=== PATIENT | female | born 1975 | race Caucasian/White ===

== ENCOUNTER 2021-03-20 21:06 | Inpatient (IN) | payer OTHER, SELFPAY ==
[2021-03-20 21:15] VITALS: BP 123/93; PULSE 123; RESP 16; TEMP 37; O2SAT 97; BMI 30.7
[2021-03-20 21:35] VITALS: BP 123/93; PULSE 123; RESP 17; TEMP 37; O2SAT 97
[2021-03-20 22:12] LABS: COVID-19 Test Negative (Negative)
[2021-03-20 22:17] LABS: Amphetamine Screen Urine Not Detected (Not Detect); Barbiturates, Urine Not Detected (Not Detect); Benzodiazepines Screen Urine Not Detected (Not Detect); Cannabinoid Screen Urine Not Detected (Not Detect); Cocaine Screen Urine Not Detected (Not Detect); Fentanyl, urine POSITIVE (Not Detect); Opiate Screen Urine Not Detected (Not Detect); Phencyclidine Screen Urine Not Detected (Not Detect)
--- NOTE | 2021-03-20 22:18 | ECG_ITS ---
Test Reason : SI Blood Pressure : / mmHG Vent. Rate : 104 BPM Atrial Rate : 104 BPM P-R Int : 138 ms QRS Dur : 084 ms QT Int : 362 ms P-R-T Axes : 039 -33 050 degrees QTc Int : 476 ms Sinus tachycardia Left axis deviation Possible Anterior infarct , age undetermined Abnormal ECG When compared with ECG of 16-JUN-2018 21:17, No significant change was found Referred By: Marielle Richardson Electronically Signed By:NELLY MALDONADO MD
--- NOTE | 2021-03-20 22:19 | ED.PSYCH ---
HPI - Psych General Chief Complaint: Psychiatric Symptoms Stated Complaint: SI Time Seen by Provider: 03/20/21 22:16 History of Present Illness HPI Narrative: Patient is a 45-year-old female presents today with having suicidal ideation. Patient claims that she does not want to live anymore. Has a history of diabetes. Plan to kill herself by not eating. Patient denies any fever chills. No coughing or congestion. Denies using any recreational drugs. Positive extreme stress at home. Patient is 45 years old and [place]. Has a long history of diabetes. There has been no acute changes medications. Related Data Allergies Allergy/AdvReac Type Severity Reaction Status Date / Time metformin [METFORMIN] Allergy Intermediate VOMITING Unverified 12/24/19 19:14 aspirin [ASA] AdvReac Intermediate VOMITING Unverified 12/24/19 19:14 loratadine [From CLARITIN] AdvReac Intermediate NAUSEA & Unverified 12/24/19 19:14 VOMITING meloxicam [MELOXICAM] AdvReac Intermediate VOMITING Unverified 12/24/19 19:14 NSAIDS (Non-Steroidal AdvReac Intermediate VOMITING Unverified 12/24/19 19:14 Anti-Inflamma [NSAIDS (NON-STEROIDAL ANTI-INFLAMMA] Review of Systems Review of Systems: No fever no chills no diaphoresis Yes all other systems are reviewed and are negative [facility] Past Medical History Attestation statement: The following information was validated with the patient. Social History Social History Advance Directives: No Advance Directives Information Provided: Yes Patient : No Physical Exam Vital Signs: Vital Signs: Last Vital Signs Temp 98.6 F 03/20/21 21:35 Pulse 107 H 03/21/21 00:14 Resp 16 03/21/21 00:14 BP 115/81 03/21/21 00:14 Pulse Ox 97 03/21/21 00:14 BMI result Body Mass Index 30.7 Appearance: Alert. Oriented X3. No acute distress. Eyes: Pupils equal, round and reactive to light. ENT: Pharynx normal. Neck: Normal inspection. Neck supple. No lymph nodes noted. No crepitus CVS: Normal heart rate and rhythm. Pulses normal. Normal S1 and S2 Respiratory: No respiratory distress. Breath sounds normal. No Wheezing. No rales Abdomen: Soft and nontender. No rigidity. No distention. good BS x4 Skin: Skin warm and dry. Normal skin color. Normal skin turgor. Extremities: No lower extremity edema. Neurovascular intact to all extremities. No Lacerations. No Rash Neuro: Oriented X 3. No motor deficit. No sensory deficit. Moving all extermities. No slurred speech MDM - Psych MDM Narrative Medical decision making narrative: Positive suicidal ideation will require further evaluation. Patient's sugar was low. Attempt to give patient glucagon. Patient is not drinking juices. Will monitor sugar carefully. Currently in stable condition. Lab Data Result diagrams: 03/20/21 22:55 03/20/21 22:55 Labs: Lab Results 03/20/21 03/20/21 03/20/21 Range/Units 21:42 21:42 22:55 WBC 6.8 (4.8-10.8) X10*3/uL RBC 4.88 (4.20-5.50) X10*6/uL Hgb 15.5 (12.0-16.0) g/dl Hct 46.2 (37.0-47.0) % MCV 94.7 (80.0-98.0) fL MCH 31.8 (27.0-33.0) pg MCHC 33.5 (31.0-35.0) g/dl RDW 12.7 (11.0-16.0) % Plt Count 286 (160-400) X10*3/uL MPV 9.7 (9.4-12.3) fL Immature Gran % (Auto) 0.3 (0.0-0.4) % Neut % (Auto) 56.1 (45-73) % Lymph % (Auto) 35.0 (20-40) % [place] % (Auto) 6.5 (2-11) % Eos % (Auto) 1.5 (0-4) % Baso % (Auto) 0.6 (0-2) % Lymph # (Auto) 2.4 (1.2-4.9) X10*3/uL [place] # (Auto) 0.4 (0.1-1.2) X10*3/uL Eos # (Auto) 0.1 (0.0-0.4) X10*3/uL Baso # (Auto) 0.0 (0.0-0.2) X10*3/uL Abs Immat Gran (auto) 0.02 (0.00-0.03) X10*3/uL Absolute Neuts (auto) 3.8 (2.0-8.3) x10*3/uL Absolute Nucleated RBC 0.000 (0.0-0.012) X10*3/uL Nucleated RBC % (auto) 0.0 (0.0-0.2) /100WBC Sodium (135-145) mmol/L Potassium (3.3-5.1) mmol/L Chloride (96-108) mmol/L Carbon Dioxide (22-29) mmol/L Anion Gap (12-20) BUN (9-16) mg/dL Creatinine (0.5-1.4) mg/dL Estim Creat Clear Calc Estimated GFR POC Glucose (60-115) mg/dL Random Glucose (60-115) mg/dL Calcium (8.4-10.2) mg/dL Salicylates (15-30) mg/dL Urine Opiates Screen Not Detected (Not Detect) Urine Fentanyl Screen POSITIVE H (Not Detect) Acetaminophen (<30) mcg/mL Ur Barbiturates Screen Not Detected (Not Detect) Ur Phencyclidine Scrn Not Detected (Not Detect) Ur Amphetamines Screen Not Detected (Not Detect) U Benzodiazepines Scrn Not Detected (Not Detect) Urine Cocaine Screen Not Detected (Not Detect) U Marijuana (THC) Screen Not Detected (Not Detect) Ethyl Alcohol mg/dL COVID-19 (ALKA) Negative (Negative) COVID-19 Clin Com See Note 03/20/21 03/20/21 03/21/21 Range/Units 22:55 22:55 00:00 WBC (4.8-10.8) X10*3/uL RBC (4.20-5.50) X10*6/uL Hgb (12.0-16.0) g/dl Hct (37.0-47.0) % MCV (80.0-98.0) fL MCH (27.0-33.0) pg MCHC (31.0-35.0) g/dl RDW (11.0-16.0) % Plt Count (160-400) X10*3/uL MPV (9.4-12.3) fL Immature Gran % (Auto) (0.0-0.4) % Neut % (Auto) (45-73) % Lymph % (Auto) (20-40) % [place] % (Auto) (2-11) % Eos % (Auto) (0-4) % Baso % (Auto) (0-2) % Lymph # (Auto) (1.2-4.9) X10*3/uL [place] # (Auto) (0.1-1.2) X10*3/uL Eos # (Auto) (0.0-0.4) X10*3/uL Baso # (Auto) (0.0-0.2) X10*3/uL Abs Immat Gran (auto) (0.00-0.03) X10*3/uL Absolute Neuts (auto) (2.0-8.3) x10*3/uL Absolute Nucleated RBC (0.0-0.012) X10*3/uL Nucleated RBC % (auto) (0.0-0.2) /100WBC Sodium 147 H (135-145) mmol/L Potassium 4.0 (3.3-5.1) mmol/L Chloride 112 H (96-108) mmol/L Carbon Dioxide 22 (22-29) mmol/L Anion Gap 17 (12-20) BUN 13 (9-16) mg/dL Creatinine 1.50 H (0.5-1.4) mg/dL Estim Creat Clear Calc 52.9 Estimated GFR 38 POC Glucose 46 L* (60-115) mg/dL Random Glucose 56 L* (60-115) mg/dL Calcium 10.0 (8.4-10.2) mg/dL Salicylates < 5.0 L (15-30) mg/dL Urine Opiates Screen (Not Detect) Urine Fentanyl Screen (Not Detect) Acetaminophen 3 (<30) mcg/mL Ur Barbiturates Screen (Not Detect) Ur Phencyclidine Scrn (Not Detect) Ur Amphetamines Screen (Not Detect) U Benzodiazepines Scrn (Not Detect) Urine Cocaine Screen (Not Detect) U Marijuana (THC) Screen (Not Detect) Ethyl Alcohol < 10 mg/dL COVID-19 (ALKA) (Negative) COVID-19 Clin Com Discharge Plan Discharge Clinical Impression: Suicidal ideation
[2021-03-20 23:04] LABS: MANUAL DIFF FLAG NO
[2021-03-20 23:06] LABS: Basophils Percent Auto 0.6 % (0-2); Eosinophils Absolute Auto 0.1 X10*3/uL (0.0-0.4); Eosinophils Percent Auto 1.5 % (0-4); Hematocrit 46.2 % (37.0-47.0); Hemoglobin 15.5 g/dl (12.0-16.0); Imm Gran Abs Auto 0.02 X10*3/uL (0.00-0.03); Imm Gran Pct Auto 0.3 % (0.0-0.4); Lymphocytes Absolute Auto 2.4 X10*3/uL (1.2-4.9); Mean Corpuscular HGB Conc 33.5 g/dl (31.0-35.0); Mean Corpuscular Hemoglobin 31.8 pg (27.0-33.0); Mean Corpuscular Volume 94.7 fL (80.0-98.0); Mean Platelet Volume 9.7 fL (9.4-12.3); Monocytes Absolute Auto 0.4 X10*3/uL (0.1-1.2); Monocytes Percent Auto 6.5 % (2-11); Neutrophils Absolute Auto 3.8 x10*3/uL (2.0-8.3); Neutrophils Percent Auto 56.1 % (45-73); Platelet Count 286 X10*3/uL (160-400); Red Blood Count 4.88 X10*6/uL (4.20-5.50); Red Cell Distribution Width 12.7 % (11.0-16.0); White Blood Count 6.8 X10*3/uL (4.8-10.8)
[2021-03-20 23:17] LABS: Ethanol < 10 mg/dL
[2021-03-20 23:38] LABS: Acetaminophen LAB 3 mcg/mL (<30); Anion Gap 17 (12-20); Blood Urea Nitrogen 13 mg/dL (9-16); Carbon Dioxide 22 mmol/L (22-29); Chloride 112 mmol/L (96-108); Creatinine Clr Calc Pharmacy 52.9; Estimated Glomerular Filt Rate 38; Glucose Random 56 mg/dL (60-115); Salicylate < 5.0 mg/dL (15-30); Sodium 147 mmol/L (135-145)
[2021-03-21 00:03] LABS: Glucose, Whole Blood 46 mg/dL (60-115)
[2021-03-21 00:14] VITALS: BP 115/81; PULSE 107; RESP 16; O2SAT 97
--- NOTE | 2021-03-21 02:03 | PC.NURSE ---
Pt POC is 69.
[2021-03-21 02:06] LABS: Glucose, Whole Blood 69 mg/dL (60-115)
--- NOTE | 2021-03-21 03:27 | PC.NURSE ---
Pt POC is 147.
[2021-03-21 03:28] VITALS: BP 112/79; PULSE 109; RESP 16; O2SAT 97
[2021-03-21 03:30] LABS: Glucose, Whole Blood 147 mg/dL (60-115)
--- NOTE | 2021-03-21 05:43 | PC.NURSE ---
Patient's POC was 46 @ 0000, patient refused to drink, provider notified/ordered to transfer patient to main ED for monitor and treatment, no treatment done, patient started eating and drinking, POC was 147 @ 0325 was transferred back to ED POD at 0400, N referral completed/confirmed, clinician visit deferred due to low blood sugar, patient currently sleeping, will continue to monitor.
[2021-03-21 07:10] LABS: Glucose, Whole Blood 93 mg/dL (60-115)
--- NOTE | 2021-03-21 07:13 | PC.NURSE ---
patient appears to remain asleep at present respirations are even and unlabroed, patient appears in no distress.
[2021-03-21] MEDS: Cholecalciferol (Vitamin D3) 25 MCG TABLET 50 MCG PO (09:46)
[2021-03-21] MEDS: Escitalopram Oxalate 10 MG TABLET 30 MG PO (09:46)
[2021-03-21] MEDS: Acetaminophen 325 MG TABLET 975 MG PO ×3 (09:46→21:58)
[2021-03-21] MEDS: Famotidine 20 MG TABLET PO (09:46)
[2021-03-21] MEDS: buPROPion HCl XL 300 MG TAB.ER.24H PO (09:46)
[2021-03-21 09:47] VITALS: BP 112/79; PULSE 109
[2021-03-21] MEDS: traMADoL HCL 50 MG TABLET PO ×2 (09:47→21:44)
[2021-03-21] MEDS: Propranolol HCL 10 MG TABLET PO ×2 (09:47→21:44)
[2021-03-21] MEDS: Levothyroxine Sodium 125 MCG TABLET PO (09:51)
[2021-03-21 12:34] LABS: Glucose, Whole Blood 152 mg/dL (60-115)
[2021-03-21] MEDS: QUEtiapine Fumarate 25 MG TABLET PO ×3 (12:46→21:46)
[2021-03-21] MEDS: Insulin Lispro 100 UNIT/ML 3 ML VIAL 6 UNIT SUBCUT ×2 (13:21→17:56)
--- NOTE | 2021-03-21 14:43 | MHC.CARE ---
[facility] notified pt will be going inpatient. Spoke with [facility].
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
[2021-03-21 17:37] LABS: Glucose, Whole Blood 166 mg/dL (60-115)
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
[2021-03-21 21:42] LABS: Glucose, Whole Blood 264 mg/dL (60-115)
[2021-03-21] MEDS: Insulin Glargine,Hum.rec.anlog 100 UNIT/ML 10 ML VIAL 30 UNIT SUBCUT (21:42)
[2021-03-21 21:44] VITALS: BP 127/68; PULSE 80
[2021-03-21] MEDS: Loratadine 10 MG TABLET PO (21:45)
[2021-03-21] MEDS: Atorvastatin Calcium 40 MG TABLET PO (21:45)
[2021-03-21] MEDS: traZODone HCL 100 MG TABLET PO (21:46)
[2021-03-21] MEDS: Folic Acid 1 MG TABLET PO (21:46)
[2021-03-21] MEDS: lamoTRIgine 100 MG TABLET 200 MG PO (21:46)
[2021-03-21] MEDS: Fluticasone Propionate Nasal 16 GM SPRAY 1 SPRAY NOSTRIL-B (22:03)
[2021-03-21 22:11] VITALS: BP 127/68; PULSE 80; TEMP 36.6; O2SAT 98
[2021-03-22] MEDS: traMADoL HCL 50 MG TABLET PO ×2 (06:35→20:57)
[2021-03-22] MEDS: Levothyroxine Sodium 125 MCG TABLET PO (06:35)
[2021-03-22 07:57] LABS: Estimated Average Glucose 171 mg/dL; Hemoglobin A1c % 7.6 %
[2021-03-22 08:08] LABS: Cholesterol 124 mg/dL; HDL Cholesterol 38 mg/dL; LDL Cholesterol Calculated 66 mg/dl; Magnesium 1.8 mg/dL (1.6-2.6); Triglycerides 103 mg/dL
[2021-03-22 08:43] LABS: Folate > 20.0 ng/mL (> or = 4.0); Vitamin B12 801 pg/mL (200-900)
[2021-03-22 08:49] LABS: Glucose, Whole Blood 146 mg/dL (60-115)
[2021-03-22] MEDS: Insulin Lispro 100 UNIT/ML 3 ML VIAL 6 UNIT SUBCUT ×3 (08:54→18:57)
[2021-03-22] MEDS: Famotidine 20 MG TABLET PO ×2 (08:55→20:58)
[2021-03-22] MEDS: buPROPion HCl XL 300 MG TAB.ER.24H PO (08:55)
[2021-03-22] MEDS: Escitalopram Oxalate 10 MG TABLET 30 MG PO (08:55)
[2021-03-22] MEDS: Cholecalciferol (Vitamin D3) 25 MCG TABLET 50 MCG PO (08:55)
[2021-03-22] MEDS: QUEtiapine Fumarate 25 MG TABLET PO ×2 (08:57→20:58)
[2021-03-22 09:00] VITALS: BP 117/73; PULSE 106; RESP 16; TEMP 36.4; O2SAT 97
[2021-03-22 09:20] LABS: Free T4 (Free Thyroxine) 1.28 ng/dL (0.71-1.85)
[2021-03-22 09:55] VITALS: BP 117/73; PULSE 106
[2021-03-22] MEDS: Propranolol HCL 10 MG TABLET PO ×2 (09:55→20:57)
[2021-03-22] MEDS: Acetaminophen 325 MG TABLET 975 MG PO ×3 (10:00→18:04)
[2021-03-22] MEDS: Fluticasone Propionate Nasal 16 GM SPRAY 1 SPRAY NOSTRIL-B ×2 (10:01→20:55)
--- NOTE | 2021-03-22 12:30 | MHC.CLN ---
NUTRITION DIET CHANGED TO DIABETIC 2000 KCAL. A1C=7.6 AND TAKES DM MEDS.
[2021-03-22 12:51] LABS: Glucose, Whole Blood 132 mg/dL (60-115)
[2021-03-22] MEDS: buPROPion HCl XL 150 MG TAB.ER.24H PO (14:23)
--- NOTE | 2021-03-22 15:19 | HO.PSYCHPN ---
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 she states she has been out of the hospital for 2 years, living at [facility] for 8. review the presenting problem. reports she has been depressed since january, got really bad in the past couple of weeks. denies any precipitating factors. asks that famotidine be increased to 20 mg BID from once daily, as that is what she is prescribed outside the hospital. meds reviewed. agrees to increase wellbutrin to 450 mg daily for depression; it is noted she is taking lamictal, an AED. pt reports she has thoughts of overdose on tylenol outside the hospital but is only thinking of starving herself here. she notes she has eaten some since admission, as she is help-seeking. per staff, c/o hypersomnia. FSBS 146 today. slept well last night. has eaten some since admission. Mental Status Exam Mental Status Exam Narrative: A&O. In hospital attire, adequate grooming. Good eye contact, attentive. No Tics or Tremors. No abnormal involuntary movements. Calm, cooperative, engaged. Non-pressured speech, spontaneous with regular rate and rhythm, normal volume and prosody. No prolonged speech latency or dysarthria. Mood is ?i don't care,? affect is somewhat incongruent- overall pt is calm, forthcoming, help seeking but somewhat indifferent in reporting sx. Endorses SI with plan to starve herself/ denies SIB/HI upon inquiry. Denies A/VH or delusional thought content. Thoughts are coherent, organized. No known cognitive or memory impairment. Insight/ Judgment limited but adequate. Diagnostics Vital Signs (24Hr): Vital Signs - 24 hr 03/21/21 21:44 03/21/21 22:11 03/22/21 09:00 Temperature 97.8 F 97.6 F Pulse Rate 80 80 106 H Respiratory Rate 16 Blood Pressure 127/68 127/68 117/73 Pulse Oximetry 98 97 03/22/21 09:55 Temperature Pulse Rate 106 H Respiratory Rate Blood Pressure 117/73 Pulse Oximetry BMI result Body Mass Index 30.7 Labs Results: 03/20/21 22:55 03/20/21 22:55 Labs: Laboratory Results - last 48 hr 12/13/21 12/13/21 12/13/21 21:42 21:42 22:55 WBC 6.8 RBC 4.88 Hgb 15.5 Hct 46.2 MCV 94.7 MCH 31.8 MCHC 33.5 RDW 12.7 Plt Count 286 MPV 9.7 Immature Gran % (Auto) 0.3 Neut % (Auto) 56.1 Lymph % (Auto) 35.0 [place] % (Auto) 6.5 Eos % (Auto) 1.5 Baso % (Auto) 0.6 Lymph # (Auto) 2.4 [place] # (Auto) 0.4 Eos # (Auto) 0.1 Baso # (Auto) 0.0 Abs Immat Gran (auto) 0.02 Absolute Neuts (auto) 3.8 Absolute Nucleated RBC 0.000 Nucleated RBC % (auto) 0.0 Sodium Potassium Chloride Carbon Dioxide Anion Gap BUN Creatinine Estim Creat Clear Calc Estimated GFR POC Glucose Random Glucose Estimat Average Glucose Hemoglobin A1c % Calcium Magnesium Triglycerides Cholesterol LDL Cholesterol, Calc HDL Cholesterol Vitamin B12 Folate TSH Free T4 Salicylates Urine Opiates Screen Not Detected Urine Fentanyl Screen POSITIVE H Acetaminophen Ur Barbiturates Screen Not Detected Ur Phencyclidine Scrn Not Detected Ur Amphetamines Screen Not Detected U Benzodiazepines Scrn Not Detected Urine Cocaine Screen Not Detected U Marijuana (THC) Screen Not Detected Ethyl Alcohol COVID-19 (ALKA) Negative COVID-19 Clin Com See Note 03/20/21 03/20/21 03/21/21 22:55 22:55 00:00 WBC RBC Hgb Hct MCV MCH MCHC RDW Plt Count MPV Immature Gran % (Auto) Neut % (Auto) Lymph % (Auto) [place] % (Auto) Eos % (Auto) Baso % (Auto) Lymph # (Auto) [place] # (Auto) Eos # (Auto) Baso # (Auto) Abs Immat Gran (auto) Absolute Neuts (auto) Absolute Nucleated RBC Nucleated RBC % (auto) Sodium 147 H Potassium 4.0 Chloride 112 H Carbon Dioxide 22 Anion Gap 17 BUN 13 Creatinine 1.50 H Estim Creat Clear Calc 52.9 Estimated GFR 38 POC Glucose 46 L* Random Glucose 56 L* Estimat Average Glucose Hemoglobin A1c % Calcium 10.0 Magnesium Triglycerides Cholesterol LDL Cholesterol, Calc HDL Cholesterol Vitamin B12 Folate TSH Free T4 Salicylates < 5.0 L Urine Opiates Screen Urine Fentanyl Screen Acetaminophen 3 Ur Barbiturates Screen Ur Phencyclidine Scrn Ur Amphetamines Screen U Benzodiazepines Scrn Urine Cocaine Screen U Marijuana (THC) Screen Ethyl Alcohol < 10 COVID-19 (ALKA) COVID-19 Lateral SV 03/21/21 03/21/21 03/21/21 02:01 03:25 07:07 WBC RBC Hgb Hct MCV MCH MCHC RDW Plt Count MPV Immature Gran % (Auto) Neut % (Auto) Lymph % (Auto) [place] % (Auto) Eos % (Auto) Baso % (Auto) Lymph # (Auto) [place] # (Auto) Eos # (Auto) Baso # (Auto) Abs Immat Gran (auto) Absolute Neuts (auto) Absolute Nucleated RBC Nucleated RBC % (auto) Sodium Potassium Chloride Carbon Dioxide Anion Gap BUN Creatinine Estim Creat Clear Calc Estimated GFR POC Glucose 69 147 H 93 Random Glucose Estimat Average Glucose Hemoglobin A1c % Calcium Magnesium Triglycerides Cholesterol LDL Cholesterol, Calc HDL Cholesterol Vitamin B12 Folate TSH Free T4 Salicylates Urine Opiates Screen Urine Fentanyl Screen Acetaminophen Ur Barbiturates Screen Ur Phencyclidine Scrn Ur Amphetamines Screen U Benzodiazepines Scrn Urine Cocaine Screen U Marijuana (THC) Screen Ethyl Alcohol COVID-19 (ALKA) COVID-[place] 03/21/21 03/21/21 03/21/21 12:31 17:31 21:33 WBC RBC Hgb Hct MCV MCH MCHC RDW Plt Count MPV Immature Gran % (Auto) Neut % (Auto) Lymph % (Auto) [place] % (Auto) Eos % (Auto) Baso % (Auto) Lymph # (Auto) [place] # (Auto) Eos # (Auto) Baso # (Auto) Abs Immat Gran (auto) Absolute Neuts (auto) Absolute Nucleated RBC Nucleated RBC % (auto) Sodium Potassium Chloride Carbon Dioxide Anion Gap BUN Creatinine Estim Creat Clear Calc Estimated GFR POC Glucose 152 H 166 H 264 H Random Glucose Estimat Average Glucose Hemoglobin A1c % Calcium Magnesium Triglycerides Cholesterol LDL Cholesterol, Calc HDL Cholesterol Vitamin B12 Folate TSH Free T4 Salicylates Urine Opiates Screen Urine Fentanyl Screen Acetaminophen Ur Barbiturates Screen Ur Phencyclidine Scrn Ur Amphetamines Screen U Benzodiazepines Scrn Urine Cocaine Screen U Marijuana (THC) Screen Ethyl Alcohol COVID-19 (ALKA) COVID-19 Lateral SV 03/22/21 03/22/21 03/22/21 07:26 07:26 07:26 WBC RBC Hgb Hct MCV MCH MCHC RDW Plt Count MPV Immature Gran % (Auto) Neut % (Auto) Lymph % (Auto) [place] % (Auto) Eos % (Auto) Baso % (Auto) Lymph # (Auto) [place] # (Auto) Eos # (Auto) Baso # (Auto) Abs Immat Gran (auto) Absolute Neuts (auto) Absolute Nucleated RBC Nucleated RBC % (auto) Sodium Potassium Chloride Carbon Dioxide Anion Gap BUN Creatinine Estim Creat Clear Calc Estimated GFR POC Glucose Random Glucose Estimat Average Glucose 171 Hemoglobin A1c % 7.6 Calcium Magnesium 1.8 Triglycerides 103 Cholesterol 124 LDL Cholesterol, Calc 66 HDL Cholesterol 38 Vitamin B12 801 Folate > 20.0 TSH 1.30 Free T4 1.28 Salicylates Urine Opiates Screen Urine Fentanyl Screen Acetaminophen Ur Barbiturates Screen Ur Phencyclidine Scrn Ur Amphetamines Screen U Benzodiazepines Scrn Urine Cocaine Screen U Marijuana (THC) Screen Ethyl Alcohol COVID-19 (ALKA) COVID-[place]otky 03/22/21 03/22/21 08:45 12:47 WBC RBC Hgb Hct MCV MCH MCHC RDW Plt Count MPV Immature Gran % (Auto) Neut % (Auto) Lymph % (Auto) [place] % (Auto) Eos % (Auto) Baso % (Auto) Lymph # (Auto) [place] # (Auto) Eos # (Auto) Baso # (Auto) Abs Immat Gran (auto) Absolute Neuts (auto) Absolute Nucleated RBC Nucleated RBC % (auto) Sodium Potassium Chloride Carbon Dioxide Anion Gap BUN Creatinine Estim Creat Clear Calc Estimated GFR POC Glucose 146 H 132 H Random Glucose Estimat Average Glucose Hemoglobin A1c % Calcium Magnesium Triglycerides Cholesterol LDL Cholesterol, Calc HDL Cholesterol Vitamin B12 Folate TSH Free T4 Salicylates Urine Opiates Screen Urine Fentanyl Screen Acetaminophen Ur Barbiturates Screen Ur Phencyclidine Scrn Ur Amphetamines Screen U Benzodiazepines Scrn Urine Cocaine Screen U Marijuana (THC) Screen Ethyl Alcohol COVID-19 (ALKA) COVID-19 Lateral SV Medications Medications Current Medications Acetaminophen (Acetaminophen 325 Mg Tablet) 975 mg PO TID@0800,1200,1700 [facility] Last Admin: 03/22/21 13:09 Dose: 975 mg Documented by: Al Hydroxide/Mg Hydroxide (Magnesium Hydrox/Alum Hydrox 30 Ml Oral.Susp) 30 ml PO Q4H PRN PRN Reason: Dyspepsia Albuterol Sulfate (Albuterol Sulfate 90 Mcg 8 Gm Inhaler) 2 puff INHALE Q4H PRN PRN Reason: Shortness Of Breath Atorvastatin Calcium (Atorvastatin Calcium 40 Mg Tablet) 40 mg PO BEDTIME [facility] Last Admin: 03/21/21 21:45 Dose: 40 mg Documented by: Bupropion HCl (Bupropion Hcl Xl 150 Mg Tab.Er.24h) 450 mg PO DAILY [facility] Escitalopram Oxalate (Escitalopram Oxalate 10 Mg Tablet) 30 mg PO DAILY [facility] Last Admin: 03/22/21 08:55 Dose: 30 mg Documented by: Famotidine (Famotidine 20 Mg Tablet) 20 mg PO BID [facility] Fluticasone Propionate (Fluticasone Propionate Nasal 16 Gm [place]) 1 spray NOSTRIL-B BID [facility] Last Admin: 03/22/21 10:01 Dose: 1 spray Documented by: Folic Acid (Folic Acid 1 Mg Tablet) 1 mg PO BEDTIME [facility] Last Admin: 03/21/21 21:46 Dose: 1 mg Documented by: Guaifenesin/Dextromethorphan (Guaifenesin Dm 200/20/10 Ml 10 Ml Syrup) 10 ml PO Q4H PRN PRN Reason: Cough Hydroxyzine HCl (Hydroxyzine Hcl 25 Mg Tablet) 25 mg PO Q6H PRN PRN Reason: Anxiety Insulin Glargine (Insulin Glargine,Hum.Rec.Anlog 100 Unit/Ml 10 Ml Vial) 30 unit SUBCUT BEDTIME [facility] Last Admin: 03/21/21 21:42 Dose: 30 unit Documented by: Insulin Human Lispro (Insulin Lispro 100 Unit/Ml 3 Ml Vial) 6 unit SUBCUT TIDAC [facility] Last Admin: 03/22/21 13:06 Dose: 6 unit Documented by: Lamotrigine (Lamotrigine 100 Mg Tablet) 200 mg PO BEDTIME [facility] Last Admin: 03/21/21 21:46 Dose: 200 mg Documented by: Levothyroxine Sodium (Levothyroxine Sodium 125 Mcg Tablet) 125 mcg PO SuTuWeThSa@0630 [facility] Last Admin: 03/22/21 06:35 Dose: 125 mcg Documented by: Levothyroxine Sodium 112 mcg/ (Levothyroxine Sodium 25 mcg) 137 mcg PO MoFr@0600 [facility] Loperamide HCl (Loperamide Hcl 2 Mg Capsule) 4 mg PO Q6H PRN PRN Reason: Diarrhea Loratadine (Loratadine 10 Mg Tablet) 10 mg PO BEDTIME [facility] Last Admin: 03/21/21 21:45 Dose: 10 mg Documented by: Magnesium Hydroxide (Milk Of Magnesia 30 Ml Oral.Susp) 30 ml PO DAILY PRN PRN Reason: Constipation Non-Formulary Medication (Mometasone [Asmanex Twisthaler]) 1 inhalation INHALE BID [facility] Ondansetron HCl (Ondansetron Odt 4 Mg Tab.Rapdis) 4 mg TRANSLINGU Q4H PRN PRN Reason: Nausea Prochlorperazine Maleate (Prochlorperazine Maleate 5 Mg Tablet) 10 mg PO BID PRN PRN Reason: Nausea Propranolol HCl (Propranolol Hcl 10 Mg Tablet) 10 mg PO BID [facility]; Protocol Last Admin: 03/22/21 09:55 Dose: 10 mg Documented by: Quetiapine Fumarate (Quetiapine Fumarate 25 Mg Tablet) 25 mg PO BEDTIME [facility] Last Admin: 03/21/21 21:46 Dose: 25 mg Documented by: Quetiapine Fumarate (Quetiapine Fumarate 25 Mg Tablet) 25 mg PO Q6H PRN PRN Reason: Anxiety Last Admin: 03/22/21 08:57 Dose: 25 mg Documented by: Tramadol HCl (Tramadol Hcl 50 Mg Tablet) 50 mg PO BID [facility] Last Admin: 03/22/21 06:35 Dose: 50 mg Documented by: Trazodone HCl (Trazodone Hcl 100 Mg Tablet) 100 mg PO BEDTIME [facility] Last Admin: 03/21/21 21:46 Dose: 100 mg Documented by: Vitamin D (Cholecalciferol (Vitamin D3) 25 Mcg Tablet) 50 mcg PO DAILY [facility] Last Admin: 03/22/21 08:55 Dose: 50 mcg Documented by: Allergies Allergies Allergy/AdvReac Type Severity Reaction Status Date / Time metformin [METFORMIN] Allergy Intermediate VOMITING Unverified 12/24/19 19:14 aspirin [ASA] AdvReac Intermediate VOMITING Unverified 12/24/19 19:14 loratadine [From CLARITIN] AdvReac Intermediate NAUSEA & Unverified 12/24/19 19:14 VOMITING meloxicam [MELOXICAM] AdvReac Intermediate VOMITING Unverified 12/24/19 19:14 NSAIDS (Non-Steroidal AdvReac Intermediate VOMITING Unverified 12/24/19 19:14 Anti-Inflamma [NSAIDS (NON-STEROIDAL ANTI-INFLAMMA] Assessment & Plan Assessment & Plan (1) MDD (major depressive disorder), recurrent severe, without psychosis: Status: Acute Code(s): F33.2 - Major depressive disorder, recurrent severe without psychotic features Assessment and Plan: Sonam is a 45 y.o. female who carries a dx of Severe MDD, recurrent. She was in the [employer], has VA services. Pt presented to the [facility] ED 03/20/21 via EMS from her SNF (lives at [facility] due to chronic mental health issues) due to SI with a plan to starve herself. Has not been attending to ADLs and reports at baseline she has seasonal affective sx but recently depression and SI are worse, feels more isolated. Pt has co-morbid medical diagnosis of insulin dependent diabetes, hypothyroidism (on levothyroxine). Pt has long hx of IPLOC for depression, SI. Hx of SA by OD on tylenol in 2019 leading to IPLOC at [facility] in [place]. Plan: Pt says she feels her current med regimen has been helpful, likes her psychiatrist. Reports recent med change of an increase in lamictal to 200 mg QHS in 01/26 has been helpful. Takes Propranolol is for tremors, which she attributes to wellbutrin dosage. She is currently on two different dosages of levothyroxine. pt agrees to increase wellbutrin to 450 mg daily as of 03/22. Monitor response to medications. Monitor for safety in the milieu. Discharge on stabilization. Patient seen. Chart reviewed. Discussed with team. Obtain collateral contact info?as needed I spent minutes with the patient and/or on the patient floor today, greater than?50% of which was spent counseling/coordinating care. Reason for contiued inpatient stay Substantial Risk for: harm to self and inability to function
[2021-03-22 18:03] LABS: Glucose, Whole Blood 117 mg/dL (60-115)
[2021-03-22 20:30] VITALS: BP 119/78; PULSE 122; TEMP 36.6; O2SAT 98
[2021-03-22 20:43] LABS: Glucose, Whole Blood 181 mg/dL (60-115)
[2021-03-22] MEDS: Insulin Glargine,Hum.rec.anlog 100 UNIT/ML 10 ML VIAL 30 UNIT SUBCUT (20:56)
[2021-03-22 20:57] VITALS: BP 119/78; PULSE 122
[2021-03-22] MEDS: Atorvastatin Calcium 40 MG TABLET PO (20:58)
[2021-03-22] MEDS: lamoTRIgine 100 MG TABLET 200 MG PO (20:58)
[2021-03-22] MEDS: Folic Acid 1 MG TABLET PO (20:58)
[2021-03-22] MEDS: traZODone HCL 100 MG TABLET PO (20:59)
[2021-03-22] MEDS: Loratadine 10 MG TABLET PO (20:59)
[2021-03-23] MEDS: Levothyroxine Sodium 125 MCG TABLET PO (06:48)
[2021-03-23] MEDS: Acetaminophen 325 MG TABLET 975 MG PO ×3 (06:50→18:13)
[2021-03-23 07:00] VITALS: BMI 32.1
[2021-03-23 09:00] VITALS: BP 110/82; PULSE 118; RESP 17; TEMP 36.7; O2SAT 99
[2021-03-23 09:19] LABS: Glucose, Whole Blood 161 mg/dL (60-115)
[2021-03-23] MEDS: Insulin Lispro 100 UNIT/ML 3 ML VIAL 6 UNIT SUBCUT ×3 (09:25→18:34)
[2021-03-23] MEDS: buPROPion HCl XL 150 MG TAB.ER.24H 450 MG PO (09:26)
[2021-03-23 09:27] VITALS: BP 110/82; PULSE 118
[2021-03-23] MEDS: traMADoL HCL 50 MG TABLET PO ×2 (09:27→20:41)
[2021-03-23] MEDS: Escitalopram Oxalate 10 MG TABLET 30 MG PO (09:27)
[2021-03-23] MEDS: Propranolol HCL 10 MG TABLET PO ×2 (09:27→20:42)
[2021-03-23] MEDS: Cholecalciferol (Vitamin D3) 25 MCG TABLET 50 MCG PO (09:27)
[2021-03-23] MEDS: Famotidine 20 MG TABLET PO ×2 (09:28→20:40)
[2021-03-23] MEDS: QUEtiapine Fumarate 25 MG TABLET PO ×3 (11:06→18:37)
[2021-03-23 13:01] LABS: Glucose, Whole Blood 73 mg/dL (60-115)
--- NOTE | 2021-03-23 15:47 | HO.PSYCHPN ---
Subjective Subjective Date of Service: 03/23/21 Reason For Visit: SI Interim History: pt reports difficulty sleeping and mood worse than it was yesterday. the reasons seem to be rumination on dashed hopes of a better relationship with her daughter and the upcoming holidays, during which she will have nobody with whom to celebrate them. endorses SI, denies intent here. agrees to continue current mgmt. per staff, anx/dep. denied SI/HI. sleeping well. got seroquel 25 to good effect. dep 01/15. isolating, attending groups, visible in milieu. Mental Status Exam Mental Status Exam Narrative: A&O. In street clothes, adequate grooming. Good eye contact, attentive. No Tics or Tremors. No abnormal involuntary movements. Calm, cooperative, engaged. Non-pressured speech, spontaneous with regular rate and rhythm, normal volume and prosody. No prolonged speech latency or dysarthria. Mood is ?worse than yesterday, affect is generally congruent- overall pt is calm, forthcoming, help seeking. Endorses SI with no intent in hospital. Thoughts are coherent, organized. No known cognitive or memory impairment. Insight/ Judgment limited but adequate. Diagnostics Vital Signs (24Hr): Vital Signs - 24 hr 03/22/21 20:30 03/22/21 20:57 03/23/21 09:27 Temperature 97.8 F Pulse Rate 122 H 122 H 118 H Blood Pressure 119/78 119/78 110/82 Pulse Oximetry 98 BMI result Body Mass Index 30.7 Labs Results: 03/20/21 22:55 03/20/21 22:55 Labs: Laboratory Results - last 48 hr 03/21/21 03/21/21 03/22/21 17:31 21:33 07:26 POC Glucose 166 H 264 H Estimat Average Glucose 171 Hemoglobin A1c % 7.6 Magnesium Triglycerides Cholesterol LDL Cholesterol, Calc HDL Cholesterol Vitamin B12 Folate TSH Free T4 03/22/21 03/22/21 03/22/21 07:26 07:26 08:45 POC Glucose 146 H Estimat Average Glucose Hemoglobin A1c % Magnesium 1.8 Triglycerides 103 Cholesterol 124 LDL Cholesterol, Calc 66 HDL Cholesterol 38 Vitamin B12 801 Folate > 20.0 TSH 1.30 Free T4 1.28 03/22/21 03/22/21 03/22/21 12:47 18:01 20:38 POC Glucose 132 H 117 H 181 H Estimat Average Glucose Hemoglobin A1c % Magnesium Triglycerides Cholesterol LDL Cholesterol, Calc HDL Cholesterol Vitamin B12 Folate TSH Free T4 03/23/21 03/23/21 09:11 12:35 POC Glucose 161 H 73 Estimat Average Glucose Hemoglobin A1c % Magnesium Triglycerides Cholesterol LDL Cholesterol, Calc HDL Cholesterol Vitamin B12 Folate TSH Free T4 Medications Medications Current Medications Acetaminophen (Acetaminophen 325 Mg Tablet) 975 mg PO TID@0800,1200,1700 [facility] Last Admin: 03/23/21 13:07 Dose: 975 mg Documented by: Al Hydroxide/Mg Hydroxide (Magnesium Hydrox/Alum Hydrox 30 Ml Oral.Susp) 30 ml PO Q4H PRN PRN Reason: Dyspepsia Albuterol Sulfate (Albuterol Sulfate 90 Mcg 8 Gm Inhaler) 2 puff INHALE Q4H PRN PRN Reason: Shortness Of Breath Atorvastatin Calcium (Atorvastatin Calcium 40 Mg Tablet) 40 mg PO BEDTIME [facility] Last Admin: 03/22/21 20:58 Dose: 40 mg Documented by: Bupropion HCl (Bupropion Hcl Xl 150 Mg Tab.Er.24h) 450 mg PO DAILY [facility] Last Admin: 03/23/21 09:26 Dose: 450 mg Documented by: Escitalopram Oxalate (Escitalopram Oxalate 10 Mg Tablet) 30 mg PO DAILY [facility] Last Admin: 03/23/21 09:27 Dose: 30 mg Documented by: Famotidine (Famotidine 20 Mg Tablet) 20 mg PO BID [facility] Last Admin: 03/23/21 09:28 Dose: 20 mg Documented by: Fluticasone Propionate (Fluticasone Propionate Nasal 16 Gm [place]) 1 spray NOSTRIL-B BID [facility] Last Admin: 03/23/21 12:13 Dose: Not Given Documented by: Folic Acid (Folic Acid 1 Mg Tablet) 1 mg PO BEDTIME [facility] Last Admin: 03/22/21 20:58 Dose: 1 mg Documented by: Guaifenesin/Dextromethorphan (Guaifenesin Dm 200/20/10 Ml 10 Ml Syrup) 10 ml PO Q4H PRN PRN Reason: Cough Hydroxyzine HCl (Hydroxyzine Hcl 25 Mg Tablet) 25 mg PO Q6H PRN PRN Reason: Anxiety Insulin Glargine (Insulin Glargine,Hum.Rec.Anlog 100 Unit/Ml 10 Ml Vial) 30 unit SUBCUT BEDTIME [facility] Last Admin: 03/22/21 20:56 Dose: 30 unit Documented by: Insulin Human Lispro (Insulin Lispro 100 Unit/Ml 3 Ml Vial) 6 unit SUBCUT TIDAC [facility] Last Admin: 03/23/21 13:08 Dose: 6 unit Documented by: Lamotrigine (Lamotrigine 100 Mg Tablet) 200 mg PO BEDTIME [facility] Last Admin: 03/22/21 20:58 Dose: 200 mg Documented by: Levothyroxine Sodium (Levothyroxine Sodium 125 Mcg Tablet) 125 mcg PO SuTuWeThSa@0630 [facility] Last Admin: 03/23/21 06:48 Dose: 125 mcg Documented by: Levothyroxine Sodium 112 mcg/ (Levothyroxine Sodium 25 mcg) 137 mcg PO MoFr@0600 [facility] Loperamide HCl (Loperamide Hcl 2 Mg Capsule) 4 mg PO Q6H PRN PRN Reason: Diarrhea Loratadine (Loratadine 10 Mg Tablet) 10 mg PO BEDTIME [facility] Last Admin: 03/22/21 20:59 Dose: 10 mg Documented by: Magnesium Hydroxide (Milk Of Magnesia 30 Ml Oral.Susp) 30 ml PO DAILY PRN PRN Reason: Constipation Non-Formulary Medication (Mometasone [Asmanex Twisthaler]) 1 inhalation INHALE BID [facility] Ondansetron HCl (Ondansetron Odt 4 Mg Tab.Rapdis) 4 mg TRANSLINGU Q4H PRN PRN Reason: Nausea Prochlorperazine Maleate (Prochlorperazine Maleate 5 Mg Tablet) 10 mg PO BID PRN PRN Reason: Nausea Propranolol HCl (Propranolol Hcl 10 Mg Tablet) 10 mg PO BID [facility]; Protocol Last Admin: 03/23/21 09:27 Dose: 10 mg Documented by: Quetiapine Fumarate (Quetiapine Fumarate 25 Mg Tablet) 25 mg PO TID PRN PRN Reason: Anxiety Last Admin: 03/23/21 14:22 Dose: 25 mg Documented by: Quetiapine Fumarate (Quetiapine Fumarate 50 Mg Tablet) 50 mg PO BEDTIME [facility] Tramadol HCl (Tramadol Hcl 50 Mg Tablet) 50 mg PO DAILY@0600 [facility] Tramadol HCl (Tramadol Hcl 50 Mg Tablet) 50 mg PO BEDTIME [facility] Trazodone HCl (Trazodone Hcl 100 Mg Tablet) 100 mg PO BEDTIME [facility] Last Admin: 03/22/21 20:59 Dose: 100 mg Documented by: Vitamin D (Cholecalciferol (Vitamin D3) 25 Mcg Tablet) 50 mcg PO DAILY [facility] Last Admin: 03/23/21 09:27 Dose: 50 mcg Documented by: Allergies Allergies Allergy/AdvReac Type Severity Reaction Status Date / Time metformin [METFORMIN] Allergy Intermediate VOMITING Unverified 12/24/19 19:14 aspirin [ASA] AdvReac Intermediate VOMITING Unverified 12/24/19 19:14 loratadine [From CLARITIN] AdvReac Intermediate NAUSEA & Unverified 12/24/19 19:14 VOMITING meloxicam [MELOXICAM] AdvReac Intermediate VOMITING Unverified 12/24/19 19:14 NSAIDS (Non-Steroidal AdvReac Intermediate VOMITING Unverified 12/24/19 19:14 Anti-Inflamma [NSAIDS (NON-STEROIDAL ANTI-INFLAMMA] Assessment & Plan Assessment & Plan (1) MDD (major depressive disorder), recurrent severe, without psychosis: Status: Acute Code(s): F33.2 - Major depressive disorder, recurrent severe without psychotic features Assessment and Plan: Hope is a 45 y.o. female who carries a dx of Severe MDD, recurrent. She was in the [employer], has VA services. Pt presented to the [facility] ED 03/20/21 via EMS from her SNF (lives at [facility] due to chronic mental health issues) due to SI with a plan to starve herself. Has not been attending to ADLs and reports at baseline she has seasonal affective sx but recently depression and SI are worse, feels more isolated. Pt has co-morbid medical diagnosis of insulin dependent diabetes, hypothyroidism (on levothyroxine). Pt has long hx of IPLOC for depression, SI. Hx of SA by OD on tylenol in 2019 leading to IPLOC at [facility] in [place]. Plan: Pt says she feels her current med regimen has been helpful, likes her psychiatrist. Reports recent med change of an increase in lamictal to 200 mg QHS in 01/26 has been helpful. Takes Propranolol is for tremors, which she attributes to wellbutrin dosage. She is currently on two different dosages of levothyroxine. pt agrees to increase wellbutrin to 450 mg daily as of 03/22. Monitor response to medications. Monitor for safety in the milieu. Discharge on stabilization. Patient seen. Chart reviewed. Discussed with team. Obtain collateral contact info?as needed I spent minutes with the patient and/or on the patient floor today, greater than?50% of which was spent counseling/coordinating care. Reason for contiued inpatient stay Substantial Risk for: harm to self
[2021-03-23 16:34] LABS: Glucose, Whole Blood 149 mg/dL (60-115)
[2021-03-23 18:00] VITALS: BP 110/66; PULSE 109; RESP 14; TEMP 36.7; O2SAT 97
[2021-03-23] MEDS: Fluticasone Propionate Nasal 16 GM SPRAY 1 SPRAY NOSTRIL-B (20:38)
[2021-03-23] MEDS: lamoTRIgine 100 MG TABLET 200 MG PO (20:39)
[2021-03-23] MEDS: Folic Acid 1 MG TABLET PO (20:39)
[2021-03-23] MEDS: traZODone HCL 100 MG TABLET PO (20:40)
[2021-03-23 20:42] VITALS: BP 110/66; PULSE 109
[2021-03-23] MEDS: QUEtiapine Fumarate 50 MG TABLET PO (20:42)
[2021-03-23] MEDS: Atorvastatin Calcium 40 MG TABLET PO (20:43)
[2021-03-23] MEDS: Loratadine 10 MG TABLET PO (20:43)
[2021-03-23] MEDS: Insulin Glargine,Hum.rec.anlog 100 UNIT/ML 10 ML VIAL 30 UNIT SUBCUT (20:50)
[2021-03-23 20:56] LABS: Glucose, Whole Blood 153 mg/dL (60-115)
[2021-03-24 08:54] VITALS: BP 105/73; PULSE 110; RESP 16; TEMP 36.7; O2SAT 96
[2021-03-24 08:56] LABS: Glucose, Whole Blood 157 mg/dL (60-115)
[2021-03-24] MEDS: Levothyroxine Sodium 112 MCG, Levothyroxine Sodium 25 MCG 137 MCG PO (09:13)
[2021-03-24] MEDS: Famotidine 20 MG TABLET PO ×2 (09:15→20:44)
[2021-03-24] MEDS: buPROPion HCl XL 150 MG TAB.ER.24H 450 MG PO (09:15)
[2021-03-24] MEDS: Escitalopram Oxalate 10 MG TABLET 30 MG PO (09:16)
[2021-03-24] MEDS: Acetaminophen 325 MG TABLET 975 MG PO ×3 (09:16→17:54)
[2021-03-24] MEDS: Cholecalciferol (Vitamin D3) 25 MCG TABLET 50 MCG PO (09:18)
[2021-03-24 09:21] VITALS: BP 105/73; PULSE 110
[2021-03-24] MEDS: Propranolol HCL 10 MG TABLET PO ×2 (09:21→21:11)
[2021-03-24] MEDS: QUEtiapine Fumarate 25 MG TABLET PO ×2 (09:21→12:54)
[2021-03-24] MEDS: traMADoL HCL 50 MG TABLET PO ×2 (09:22→20:43)
[2021-03-24 12:09] LABS: Glucose, Whole Blood 200 mg/dL (60-115)
[2021-03-24] MEDS: Insulin Lispro 100 UNIT/ML 3 ML VIAL 6 UNIT SUBCUT ×2 (12:58→17:53)
--- NOTE | 2021-03-24 13:34 | HO.PSYCHPN ---
Subjective Subjective Date of Service: 03/24/21 Reason For Visit: SI Interim History: pt states she continues to experience SI but is safe in the hospital. she denies her mood has changed, describing herself as depressed, sad, frustrated. she has no requests or complaints at the moment and is amenable to waiting and letting the wellbutrin increase settle in. per staff, no change in presentation. depressed and anxious. denies SI/HI/AVH. EJ kessler helped yesterday afternoon. attending daytime groups. Mental Status Exam Mental Status Exam Narrative: A&O. In street clothes, adequate grooming. Good eye contact, attentive. No Tics or Tremors. No abnormal involuntary movements. Calm, cooperative, engaged. Non-pressured speech, spontaneous with regular rate and rhythm, normal volume and prosody. No prolonged speech latency or dysarthria. Mood is ?depressed, sad, frustrated, affect is generally congruent- overall pt is calm, forthcoming, help seeking. Endorses SI with no intent in hospital. Thoughts are coherent, organized. No known cognitive or memory impairment. Insight/ Judgment limited but adequate. Diagnostics Vital Signs (24Hr): Vital Signs - 24 hr 03/23/21 18:00 03/23/21 20:42 03/24/21 08:54 Temperature 98.0 F 98.0 F Pulse Rate 109 H 109 H 110 H Respiratory Rate 14 16 Blood Pressure 110/66 110/66 105/73 Pulse Oximetry 97 96 03/24/21 09:21 Temperature Pulse Rate 110 H Respiratory Rate Blood Pressure 105/73 Pulse Oximetry BMI result Body Mass Index 32.1 Labs Results: 03/20/21 22:55 03/20/21 22:55 Labs: Laboratory Results - last 48 hr 03/22/21 03/22/21 03/23/21 18:01 20:38 09:11 POC Glucose 117 H 181 H 161 H 03/23/21 03/23/21 03/23/21 12:35 16:30 20:15 POC Glucose 73 149 H 153 H 03/24/21 03/24/21 08:51 12:05 POC Glucose 157 H 200 H Medications Medications Current Medications Acetaminophen (Acetaminophen 325 Mg Tablet) 975 mg PO TID@0800,1200,1700 [facility] Last Admin: 03/24/21 12:54 Dose: 975 mg Documented by: Al Hydroxide/Mg Hydroxide (Magnesium Hydrox/Alum Hydrox 30 Ml Oral.Susp) 30 ml PO Q4H PRN PRN Reason: Dyspepsia Albuterol Sulfate (Albuterol Sulfate 90 Mcg 8 Gm Inhaler) 2 puff INHALE Q4H PRN PRN Reason: Shortness Of Breath Atorvastatin Calcium (Atorvastatin Calcium 40 Mg Tablet) 40 mg PO BEDTIME [facility] Last Admin: 03/23/21 20:43 Dose: 40 mg Documented by: Bupropion HCl (Bupropion Hcl Xl 150 Mg Tab.Er.24h) 450 mg PO DAILY [facility] Last Admin: 03/24/21 09:15 Dose: 450 mg Documented by: Escitalopram Oxalate (Escitalopram Oxalate 10 Mg Tablet) 30 mg PO DAILY [facility] Last Admin: 03/24/21 09:16 Dose: 30 mg Documented by: Famotidine (Famotidine 20 Mg Tablet) 20 mg PO BID [facility] Last Admin: 03/24/21 09:15 Dose: 20 mg Documented by: Fluticasone Propionate (Fluticasone Propionate Nasal 16 Gm [place]) 1 spray NOSTRIL-B BID [facility] Last Admin: 03/24/21 10:09 Dose: Not Given Documented by: Folic Acid (Folic Acid 1 Mg Tablet) 1 mg PO BEDTIME [facility] Last Admin: 03/23/21 20:39 Dose: 1 mg Documented by: Guaifenesin/Dextromethorphan (Guaifenesin Dm 200/20/10 Ml 10 Ml Syrup) 10 ml PO Q4H PRN PRN Reason: Cough Hydroxyzine HCl (Hydroxyzine Hcl 25 Mg Tablet) 25 mg PO Q6H PRN PRN Reason: Anxiety Insulin Glargine (Insulin Glargine,Hum.Rec.Anlog 100 Unit/Ml 10 Ml Vial) 30 unit SUBCUT BEDTIME [facility] Last Admin: 03/23/21 20:50 Dose: 30 unit Documented by: Insulin Human Lispro (Insulin Lispro 100 Unit/Ml 3 Ml Vial) 6 unit SUBCUT TIDAC [facility] Last Admin: 03/24/21 12:58 Dose: 6 unit Documented by: Lamotrigine (Lamotrigine 100 Mg Tablet) 200 mg PO BEDTIME [facility] Last Admin: 03/23/21 20:39 Dose: 200 mg Documented by: Levothyroxine Sodium (Levothyroxine Sodium 125 Mcg Tablet) 125 mcg PO SuTuWeThSa@0630 [facility] Last Admin: 03/23/21 06:48 Dose: 125 mcg Documented by: Levothyroxine Sodium 112 mcg/ (Levothyroxine Sodium 25 mcg) 137 mcg PO MoFr@0600 [facility] Last Admin: 03/24/21 09:13 Dose: 137 mcg Documented by: Loperamide HCl (Loperamide Hcl 2 Mg Capsule) 4 mg PO Q6H PRN PRN Reason: Diarrhea Loratadine (Loratadine 10 Mg Tablet) 10 mg PO BEDTIME [facility] Last Admin: 03/23/21 20:43 Dose: 10 mg Documented by: Magnesium Hydroxide (Milk Of Magnesia 30 Ml Oral.Susp) 30 ml PO DAILY PRN PRN Reason: Constipation Non-Formulary Medication (Mometasone [Asmanex Twisthaler]) 1 inhalation INHALE BID [facility] Ondansetron HCl (Ondansetron Odt 4 Mg Tab.Rapdis) 4 mg TRANSLINGU Q4H PRN PRN Reason: Nausea Prochlorperazine Maleate (Prochlorperazine Maleate 5 Mg Tablet) 10 mg PO BID PRN PRN Reason: Nausea Propranolol HCl (Propranolol Hcl 10 Mg Tablet) 10 mg PO BID [facility]; Protocol Last Admin: 03/24/21 09:21 Dose: 10 mg Documented by: Quetiapine Fumarate (Quetiapine Fumarate 25 Mg Tablet) 25 mg PO TID PRN PRN Reason: Anxiety Last Admin: 03/24/21 12:54 Dose: 25 mg Documented by: Quetiapine Fumarate (Quetiapine Fumarate 50 Mg Tablet) 50 mg PO BEDTIME [facility] Last Admin: 03/23/21 20:42 Dose: 50 mg Documented by: Tramadol HCl (Tramadol Hcl 50 Mg Tablet) 50 mg PO DAILY@0600 [facility] Last Admin: 03/24/21 09:22 Dose: 50 mg Documented by: Tramadol HCl (Tramadol Hcl 50 Mg Tablet) 50 mg PO BEDTIME [facility] Last Admin: 03/23/21 20:41 Dose: 50 mg Documented by: Trazodone HCl (Trazodone Hcl 100 Mg Tablet) 100 mg PO BEDTIME [facility] Last Admin: 03/23/21 20:40 Dose: 100 mg Documented by: Vitamin D (Cholecalciferol (Vitamin D3) 25 Mcg Tablet) 50 mcg PO DAILY [facility] Last Admin: 03/24/21 09:18 Dose: 50 mcg Documented by: Allergies Allergies Allergy/AdvReac Type Severity Reaction Status Date / Time metformin [METFORMIN] Allergy Intermediate VOMITING Unverified 12/24/19 19:14 aspirin [ASA] AdvReac Intermediate VOMITING Unverified 12/24/19 19:14 loratadine [From CLARITIN] AdvReac Intermediate NAUSEA & Unverified 12/24/19 19:14 VOMITING meloxicam [MELOXICAM] AdvReac Intermediate VOMITING Unverified 12/24/19 19:14 NSAIDS (Non-Steroidal AdvReac Intermediate VOMITING Unverified 12/24/19 19:14 Anti-Inflamma [NSAIDS (NON-STEROIDAL ANTI-INFLAMMA] Assessment & Plan Assessment & Plan (1) MDD (major depressive disorder), recurrent severe, without psychosis: Status: Acute Code(s): F33.2 - Major depressive disorder, recurrent severe without psychotic features Assessment and Plan: Hope is a 45 y.o. female who carries a dx of Severe MDD, recurrent. She was in the [employer], has VA services. Pt presented to the [facility] 03/20/21 via EMS from her SNF (lives at [facility] due to chronic mental health issues) due to SI with a plan to starve herself. Has not been attending to ADLs and reports at baseline she has seasonal affective sx but recently depression and SI are worse, feels more isolated. Pt has co-morbid medical diagnosis of insulin dependent diabetes, hypothyroidism (on levothyroxine). Pt has long hx of IPLOC for depression, SI. Hx of SA by OD on tylenol in 2019 leading to IPLOC at [facility] in [place]. Plan: Pt says she feels her current med regimen has been helpful, likes her psychiatrist. Reports recent med change of an increase in lamictal to 200 mg QHS in 01/26 has been helpful. Takes Propranolol is for tremors, which she attributes to wellbutrin dosage. She is currently on two different dosages of levothyroxine. pt agrees to increase wellbutrin to 450 mg daily as of 03/22. Monitor response to medications. Monitor for safety in the milieu. Discharge on stabilization. Patient seen. Chart reviewed. Discussed with team. Obtain collateral contact info?as needed I spent minutes with the patient and/or on the patient floor today, greater than?50% of which was spent counseling/coordinating care. Reason for contiued inpatient stay Substantial Risk for: harm to self
[2021-03-24 17:53] LABS: Glucose, Whole Blood 152 mg/dL (60-115)
[2021-03-24 20:31] LABS: Glucose, Whole Blood 198 mg/dL (60-115)
[2021-03-24] MEDS: Insulin Glargine,Hum.rec.anlog 100 UNIT/ML 10 ML VIAL 30 UNIT SUBCUT (20:40)
[2021-03-24] MEDS: lamoTRIgine 100 MG TABLET 200 MG PO (20:44)
[2021-03-24] MEDS: QUEtiapine Fumarate 50 MG TABLET PO (20:44)
[2021-03-24] MEDS: traZODone HCL 100 MG TABLET PO (20:44)
[2021-03-24] MEDS: Atorvastatin Calcium 40 MG TABLET PO (20:44)
[2021-03-24] MEDS: Folic Acid 1 MG TABLET PO (20:44)
[2021-03-24] MEDS: Loratadine 10 MG TABLET PO (20:44)
[2021-03-24 20:47] VITALS: BP 114/53; PULSE 100; TEMP 36.4; O2SAT 96
[2021-03-24 21:11] VITALS: BP 111/71; PULSE 106
[2021-03-24] MEDS: Fluticasone Propionate Nasal 16 GM SPRAY 1 SPRAY NOSTRIL-B (21:11)
[2021-03-25 06:00] VITALS: BP 119/74; PULSE 97; RESP 16; TEMP 36.3; O2SAT 93
[2021-03-25] MEDS: traMADoL HCL 50 MG TABLET PO ×2 (06:46→20:59)
[2021-03-25] MEDS: Levothyroxine Sodium 125 MCG TABLET PO (06:46)
[2021-03-25 08:44] VITALS: BP 119/74; PULSE 97
[2021-03-25] MEDS: Fluticasone Propionate Nasal 16 GM SPRAY 1 SPRAY NOSTRIL-B ×2 (08:44→21:01)
[2021-03-25] MEDS: Propranolol HCL 10 MG TABLET PO ×2 (08:44→20:58)
[2021-03-25 08:45] LABS: Glucose, Whole Blood 182 mg/dL (60-115)
[2021-03-25] MEDS: Famotidine 20 MG TABLET PO ×2 (08:45→20:58)
[2021-03-25] MEDS: Escitalopram Oxalate 10 MG TABLET 30 MG PO (08:45)
[2021-03-25] MEDS: Acetaminophen 325 MG TABLET 975 MG PO ×2 (08:45→12:42)
[2021-03-25] MEDS: buPROPion HCl XL 150 MG TAB.ER.24H 450 MG PO (08:45)
[2021-03-25] MEDS: Cholecalciferol (Vitamin D3) 25 MCG TABLET 50 MCG PO (08:45)
[2021-03-25] MEDS: QUEtiapine Fumarate 25 MG TABLET PO ×2 (08:50→12:42)
[2021-03-25] MEDS: Insulin Lispro 100 UNIT/ML 3 ML VIAL 6 UNIT SUBCUT ×2 (09:09→12:43)
--- NOTE | 2021-03-25 11:09 | P.PNPSI_ITS ---
Subjective Subjective Date of Service: 03/25/21 Reason For Visit: SI Subjective Notes: Conditional Voluntary Interim History: The nursing staff reported that the patient has been compliant with treatment, she is pleasant and polite but she complaints of anxiety and depression. The staff has noticed that the patient needs more prompts in the afternoon. Today, on interview, the patient was on her bed and she complained of depressive symptoms, no side effects. Mental Status Exam Mental Status Exam Patient Appearance: Unkempt Patient Orientation: Person Level of Consciousness: Awake Patient Behavior: Passive Mood Description: Withdrawn and Depressed Affect Description: Constricted Patient Cognition Impaired: No Ability to Follow Directions: Good Speech Pattern: Clear and Appropriate Hallucinations: None Delusions: Not Present Thought Process: Linear Thought Content: positive for Circumstantial Depressive Symptoms: Changes in Appetite, Crying Spells, Loss of Int. in Activity and Feelings of Worthlessness Judgement: Fair Diagnostics Vital Signs (24Hr): Vital Signs - 24 hr 03/24/21 20:47 03/24/21 21:11 03/25/21 06:00 Temperature 97.6 F 97.3 F Pulse Rate 100 106 H 97 Respiratory Rate 16 Blood Pressure 114/53 L 111/71 119/74 Pulse Oximetry 96 93 03/25/21 08:44 Temperature Pulse Rate 97 Respiratory Rate Blood Pressure 119/74 Pulse Oximetry BMI result Body Mass Index 32.1 Labs Results: 03/20/21 22:55 03/20/21 22:55 Labs: Laboratory Results - last 48 hr 03/23/21 03/23/21 03/23/21 12:35 16:30 20:15 POC Glucose 73 149 H 153 H 03/24/21 03/24/21 03/24/21 08:51 12:05 17:48 POC Glucose 157 H 200 H 152 H 03/24/21 03/25/21 20:26 08:42 POC Glucose 198 H 182 H Medications Medications Current Medications Acetaminophen (Acetaminophen 325 Mg Tablet) 975 mg PO TID@0800,1200,1700 [place] Last Admin: 03/25/21 08:45 Dose: 975 mg Documented by: Al Hydroxide/Mg Hydroxide (Magnesium Hydrox/Alum Hydrox 30 Ml Oral.Susp) 30 ml PO Q4H PRN PRN Reason: Dyspepsia Albuterol Sulfate (Albuterol Sulfate 90 Mcg 8 Gm Inhaler) 2 puff INHALE Q4H PRN PRN Reason: Shortness Of Breath Atorvastatin Calcium (Atorvastatin Calcium 40 Mg Tablet) 40 mg PO BEDTIME [facility] Last Admin: 03/24/21 20:44 Dose: 40 mg Documented by: Bupropion HCl (Bupropion Hcl Xl 150 Mg Tab.Er.24h) 450 mg PO DAILY [facility] Last Admin: 03/25/21 08:45 Dose: 450 mg Documented by: Escitalopram Oxalate (Escitalopram Oxalate 10 Mg Tablet) 30 mg PO DAILY [facility] Last Admin: 03/25/21 08:45 Dose: 30 mg Documented by: Famotidine (Famotidine 20 Mg Tablet) 20 mg PO BID [facility] Last Admin: 03/25/21 08:45 Dose: 20 mg Documented by: Fluticasone Propionate (Fluticasone Propionate Nasal 16 Gm [place]) 1 spray NOSTRIL-B BID [facility] Last Admin: 03/25/21 08:44 Dose: 1 spray Documented by: Fluticasone Propionate (Fluticasone Propionate 100 Mcg Blst.W.Dev) 1 puff INHALE RBID [facility] Folic Acid (Folic Acid 1 Mg Tablet) 1 mg PO BEDTIME [facility] Last Admin: 03/24/21 20:44 Dose: 1 mg Documented by: Guaifenesin/Dextromethorphan (Guaifenesin Dm 200/20/10 Ml 10 Ml Syrup) 10 ml PO Q4H PRN PRN Reason: Cough Hydroxyzine HCl (Hydroxyzine Hcl 25 Mg Tablet) 25 mg PO Q6H PRN PRN Reason: Anxiety Insulin Glargine (Insulin Glargine,Hum.Rec.Anlog 100 Unit/Ml 10 Ml Vial) 30 unit SUBCUT BEDTIME [facility] Last Admin: 03/24/21 20:40 Dose: 30 unit Documented by: Insulin Human Lispro (Insulin Lispro 100 Unit/Ml 3 Ml Vial) 6 unit SUBCUT TIDAC [facility] Last Admin: 03/25/21 09:09 Dose: 6 unit Documented by: Lamotrigine (Lamotrigine 100 Mg Tablet) 200 mg PO BEDTIME [facility] Last Admin: 03/24/21 20:44 Dose: 200 mg Documented by: Levothyroxine Sodium (Levothyroxine Sodium 125 Mcg Tablet) 125 mcg PO SuTuWeThSa@0630 [facility] Last Admin: 03/25/21 06:46 Dose: 125 mcg Documented by: Levothyroxine Sodium 112 mcg/ (Levothyroxine Sodium 25 mcg) 137 mcg PO MoFr@0600 [facility] Last Admin: 03/24/21 09:13 Dose: 137 mcg Documented by: Loperamide HCl (Loperamide Hcl 2 Mg Capsule) 4 mg PO Q6H PRN PRN Reason: Diarrhea Loratadine (Loratadine 10 Mg Tablet) 10 mg PO BEDTIME [facility] Last Admin: 03/24/21 20:44 Dose: 10 mg Documented by: Magnesium Hydroxide (Milk Of Magnesia 30 Ml Oral.Susp) 30 ml PO DAILY PRN PRN Reason: Constipation Ondansetron HCl (Ondansetron Odt 4 Mg Tab.Rapdis) 4 mg TRANSLINGU Q4H PRN PRN Reason: Nausea Prochlorperazine Maleate (Prochlorperazine Maleate 5 Mg Tablet) 10 mg PO BID PRN PRN Reason: Nausea Propranolol HCl (Propranolol Hcl 10 Mg Tablet) 10 mg PO BID [facility]; Protocol Last Admin: 03/25/21 08:44 Dose: 10 mg Documented by: Quetiapine Fumarate (Quetiapine Fumarate 25 Mg Tablet) 25 mg PO TID PRN PRN Reason: Anxiety Last Admin: 03/24/21 12:54 Dose: 25 mg Documented by: Quetiapine Fumarate (Quetiapine Fumarate 50 Mg Tablet) 50 mg PO BEDTIME [facility] Last Admin: 03/24/21 20:44 Dose: 50 mg Documented by: Tramadol HCl (Tramadol Hcl 50 Mg Tablet) 50 mg PO DAILY@0600 [facility] Last Admin: 03/25/21 06:46 Dose: 50 mg Documented by: Tramadol HCl (Tramadol Hcl 50 Mg Tablet) 50 mg PO BEDTIME [facility] Last Admin: 03/24/21 20:43 Dose: 50 mg Documented by: Trazodone HCl (Trazodone Hcl 100 Mg Tablet) 100 mg PO BEDTIME [facility] Last Admin: 03/24/21 20:44 Dose: 100 mg Documented by: Vitamin D (Cholecalciferol (Vitamin D3) 25 Mcg Tablet) 50 mcg PO DAILY [facility] Last Admin: 03/25/21 08:45 Dose: 50 mcg Documented by: Allergies Allergies Allergy/AdvReac Type Severity Reaction Status Date / Time metformin [METFORMIN] Allergy Intermediate VOMITING Unverified 12/24/19 19:14 aspirin [ASA] AdvReac Intermediate VOMITING Unverified 12/24/19 19:14 loratadine [From CLARITIN] AdvReac Intermediate NAUSEA & Unverified 12/24/19 19:14 VOMITING meloxicam [MELOXICAM] AdvReac Intermediate VOMITING Unverified 12/24/19 19:14 NSAIDS (Non-Steroidal AdvReac Intermediate VOMITING Unverified 12/24/19 19:14 Anti-Inflamma [NSAIDS (NON-STEROIDAL ANTI-INFLAMMA] Assessment & Plan Assessment & Plan (1) MDD (major depressive disorder), recurrent severe, without psychosis: Status: Acute Code(s): F33.2 - Major depressive disorder, recurrent severe without psychotic features Assessment and Plan: Sonam is a 45 y.o. female who carries a dx of Severe MDD, recurrent. She was in the [employer], has VA services. Pt presented to the [place] ED 03/20/21 via EMS from her SNF (lives at [facility] due to chronic mental health issues) due to SI with a plan to starve herself. Has not been attending to ADLs and reports at baseline she has seasonal affective sx but recently depression and SI are worse, feels more isolated. Pt has co-morbid medical diagnosis of insulin dependent diabetes, hypothyroidism (on levothyroxine). Pt has long hx of IPLOC for depression, SI. Hx of SA by OD on tylenol in 2019 leading to IPLOC at [facility] in [place]. Plan: Pt says she feels her current med regimen has been helpful, likes her psychiatrist. Reports recent med change of an increase in lamictal to 200 mg QHS in 01/26 has been helpful. Takes Propranolol is for tremors, which she attributes to wellbutrin dosage. She is currently on two different dosages of levothyroxine. pt agrees to increase wellbutrin to 450 mg daily as of 03/22. Monitor response to medications. Monitor for safety in the milieu. Discharge on stabilization. Patient seen. Chart reviewed. Discussed with team. Obtain collateral contact info?as needed I spent minutes with the patient and/or on the patient floor today, greater than?50% of which was spent counseling/coordinating care. Reason for contiued inpatient stay Substantial Risk for: harm to self, inability to function, rapid decompensation and med/psych decompensation
[2021-03-25 12:42] LABS: Glucose, Whole Blood 320 mg/dL (60-115)
--- NOTE | 2021-03-25 17:55 | PC.NURSE ---
Patient refused 5PM Tylenol, POC, dinner and insulin. Did not want to talk at this time.
[2021-03-25 20:24] VITALS: BP 120/65; PULSE 102; TEMP 36.4; O2SAT 98
[2021-03-25 20:58] VITALS: BP 120/65; PULSE 102
[2021-03-25] MEDS: Atorvastatin Calcium 40 MG TABLET PO (20:58)
[2021-03-25] MEDS: traZODone HCL 100 MG TABLET PO (20:58)
[2021-03-25] MEDS: lamoTRIgine 100 MG TABLET 200 MG PO (20:58)
[2021-03-25] MEDS: Loratadine 10 MG TABLET PO (20:58)
[2021-03-25] MEDS: Folic Acid 1 MG TABLET PO (20:59)
[2021-03-25] MEDS: QUEtiapine Fumarate 50 MG TABLET PO (20:59)
[2021-03-25] MEDS: Fluticasone Propionate 100 MCG BLST.W.DEV 1 PUFF INHALE (21:02)
[2021-03-25 21:09] LABS: Glucose, Whole Blood 120 mg/dL (60-115)
[2021-03-25] MEDS: Ondansetron ODT 4 MG TAB.RAPDIS TRANSLINGU (21:12)
[2021-03-25] MEDS: Insulin Glargine,Hum.rec.anlog 100 UNIT/ML 10 ML VIAL 30 UNIT SUBCUT (21:15)
[2021-03-25 22:07] LABS: UPreg QC Valid YES; Urine Pregnancy NEGATIVE (NEGATIVE)
[2021-03-26] MEDS: traMADoL HCL 50 MG TABLET PO ×2 (06:40→20:34)
[2021-03-26] MEDS: Levothyroxine Sodium 125 MCG TABLET PO (06:40)
[2021-03-26] MEDS: Fluticasone Propionate Nasal 16 GM SPRAY 1 SPRAY NOSTRIL-B ×2 (08:34→20:37)
[2021-03-26] MEDS: Fluticasone Propionate 100 MCG BLST.W.DEV 1 PUFF INHALE ×2 (08:35→20:37)
[2021-03-26] MEDS: buPROPion HCl XL 150 MG TAB.ER.24H 450 MG PO (08:36)
[2021-03-26] MEDS: Acetaminophen 325 MG TABLET 975 MG PO ×3 (08:36→17:46)
[2021-03-26] MEDS: Cholecalciferol (Vitamin D3) 25 MCG TABLET 50 MCG PO (08:37)
[2021-03-26] MEDS: Escitalopram Oxalate 10 MG TABLET 30 MG PO (08:37)
[2021-03-26] MEDS: Famotidine 20 MG TABLET PO ×2 (08:38→20:35)
[2021-03-26] MEDS: QUEtiapine Fumarate 25 MG TABLET PO (08:38)
[2021-03-26] MEDS: Insulin Lispro 100 UNIT/ML 3 ML VIAL 6 UNIT SUBCUT ×3 (08:44→18:06)
[2021-03-26 08:47] VITALS: BP 108/52; PULSE 102; RESP 16; TEMP 36.7; O2SAT 99
[2021-03-26 08:48] LABS: Glucose, Whole Blood 150 mg/dL (60-115)
--- NOTE | 2021-03-26 10:45 | P.PNPSI_ITS ---
Subjective Subjective Date of Service: 03/26/21 Reason For Visit: SI Interim History: The nursing staff reported that the patient slept well last night, she was guarded, social wiht a peer. Her birthday was yesterday and she was anxious. She accepted care and medications. On interview, she denied new symptoms, no new sides effects, focusing on work on the group activity. Mental Status Exam Mental Status Exam Patient Appearance: Appropriate Patient Orientation: Person Level of Consciousness: Awake Patient Behavior: Guarded and Passive Mood Description: Depressed Affect Description: Constricted Ability to Follow Directions: Fair Speech Pattern: Clear Hallucinations: None Delusions: Not Present Thought Process: Linear Thought Content: positive for Circumstantial Judgement: Fair Diagnostics Vital Signs (24Hr): Vital Signs - 24 hr 03/25/21 20:24 03/25/21 20:58 03/26/21 08:47 Temperature 97.6 F 98.0 F Pulse Rate 102 H 102 H 102 H Respiratory Rate 16 Blood Pressure 120/65 120/65 108/52 L Pulse Oximetry 98 99 BMI result Body Mass Index 32.1 Labs Results: 03/20/21 22:55 03/20/21 22:55 Labs: Laboratory Results - last 48 hr 03/24/21 03/24/21 03/24/21 12:05 17:48 20:26 POC Glucose 200 H 152 H 198 H Urine Test 03/25/21 03/25/21 03/25/21 08:42 12:38 21:04 POC Glucose 182 H 320 H 120 H Urine Test 03/25/21 03/26/21 21:20 08:42 POC Glucose 150 H Urine Test NEGATIVE Medications Medications Current Medications Acetaminophen (Acetaminophen 325 Mg Tablet) 975 mg PO TID@0800,1200,1700 [facility] Last Admin: 03/26/21 08:36 Dose: 975 mg Documented by: Al Hydroxide/Mg Hydroxide (Magnesium Hydrox/Alum Hydrox 30 Ml Oral.Susp) 30 ml PO Q4H PRN PRN Reason: Dyspepsia Albuterol Sulfate (Albuterol Sulfate 90 Mcg 8 Gm Inhaler) 2 puff INHALE Q4H PRN PRN Reason: Shortness Of Breath Atorvastatin Calcium (Atorvastatin Calcium 40 Mg Tablet) 40 mg PO BEDTIME [facility] Last Admin: 03/25/21 20:58 Dose: 40 mg Documented by: Bupropion HCl (Bupropion Hcl Xl 150 Mg Tab.Er.24h) 450 mg PO DAILY [facility] Last Admin: 03/26/21 08:36 Dose: 450 mg Documented by: Escitalopram Oxalate (Escitalopram Oxalate 10 Mg Tablet) 30 mg PO DAILY [facility] Last Admin: 03/26/21 08:37 Dose: 30 mg Documented by: Famotidine (Famotidine 20 Mg Tablet) 20 mg PO BID [facility] Last Admin: 03/26/21 08:38 Dose: 20 mg Documented by: Fluticasone Propionate (Fluticasone Propionate Nasal 16 Gm [place]) 1 spray NOSTRIL-B BID [facility] Last Admin: 03/26/21 08:34 Dose: 1 spray Documented by: Fluticasone Propionate (Fluticasone Propionate 100 Mcg Blst.W.Dev) 1 puff INHALE RBID [facility] Last Admin: 03/26/21 08:35 Dose: 1 puff Documented by: Folic Acid (Folic Acid 1 Mg Tablet) 1 mg PO BEDTIME [facility] Last Admin: 03/25/21 20:59 Dose: 1 mg Documented by: Guaifenesin/Dextromethorphan (Guaifenesin Dm 200/20/10 Ml 10 Ml Syrup) 10 ml PO Q4H PRN PRN Reason: Cough Hydroxyzine HCl (Hydroxyzine Hcl 25 Mg Tablet) 25 mg PO Q6H PRN PRN Reason: Anxiety Insulin Glargine (Insulin Glargine,Hum.Rec.Anlog 100 Unit/Ml 10 Ml Vial) 30 unit SUBCUT BEDTIME [facility] Last Admin: 03/25/21 21:15 Dose: 30 unit Documented by: Insulin Human Lispro (Insulin Lispro 100 Unit/Ml 3 Ml Vial) 6 unit SUBCUT TIDAC [facility] Last Admin: 03/26/21 08:44 Dose: 6 unit Documented by: Lamotrigine (Lamotrigine 100 Mg Tablet) 200 mg PO BEDTIME [facility] Last Admin: 03/25/21 20:58 Dose: 200 mg Documented by: Levothyroxine Sodium (Levothyroxine Sodium 125 Mcg Tablet) 125 mcg PO SuTuWeThSa@0630 [facility] Last Admin: 03/26/21 06:40 Dose: 125 mcg Documented by: Levothyroxine Sodium 112 mcg/ (Levothyroxine Sodium 25 mcg) 137 mcg PO MoFr@0600 [facility] Last Admin: 03/24/21 09:13 Dose: 137 mcg Documented by: Loperamide HCl (Loperamide Hcl 2 Mg Capsule) 4 mg PO Q6H PRN PRN Reason: Diarrhea Loratadine (Loratadine 10 Mg Tablet) 10 mg PO BEDTIME [facility] Last Admin: 03/25/21 20:58 Dose: 10 mg Documented by: Magnesium Hydroxide (Milk Of Magnesia 30 Ml Oral.Susp) 30 ml PO DAILY PRN PRN Reason: Constipation Ondansetron HCl (Ondansetron Odt 4 Mg Tab.Rapdis) 4 mg TRANSLINGU Q4H PRN PRN Reason: Nausea Last Admin: 03/25/21 21:12 Dose: 4 mg Documented by: Prochlorperazine Maleate (Prochlorperazine Maleate 5 Mg Tablet) 10 mg PO BID PRN PRN Reason: Nausea Propranolol HCl (Propranolol Hcl 10 Mg Tablet) 10 mg PO BID [facility]; Protocol Last Admin: 03/26/21 08:37 Dose: 10 mg Documented by: Quetiapine Fumarate (Quetiapine Fumarate 25 Mg Tablet) 25 mg PO TID PRN PRN Reason: Anxiety Last Admin: 03/26/21 08:38 Dose: 25 mg Documented by: Quetiapine Fumarate (Quetiapine Fumarate 50 Mg Tablet) 50 mg PO BEDTIME [facility] Last Admin: 03/25/21 20:59 Dose: 50 mg Documented by: Tramadol HCl (Tramadol Hcl 50 Mg Tablet) 50 mg PO DAILY@0600 [facility] Last Admin: 03/26/21 06:40 Dose: 50 mg Documented by: Tramadol HCl (Tramadol Hcl 50 Mg Tablet) 50 mg PO BEDTIME [facility] Last Admin: 03/25/21 20:59 Dose: 50 mg Documented by: Trazodone HCl (Trazodone Hcl 100 Mg Tablet) 100 mg PO BEDTIME [facility] Last Admin: 03/25/21 20:58 Dose: 100 mg Documented by: Vitamin D (Cholecalciferol (Vitamin D3) 25 Mcg Tablet) 50 mcg PO DAILY [facility] Last Admin: 03/26/21 08:37 Dose: 50 mcg Documented by: Allergies Allergies Allergy/AdvReac Type Severity Reaction Status Date / Time metformin [METFORMIN] Allergy Intermediate VOMITING Unverified 12/24/19 19:14 aspirin [ASA] AdvReac Intermediate VOMITING Unverified 12/24/19 19:14 loratadine [From CLARITIN] AdvReac Intermediate NAUSEA & Unverified 12/24/19 19:14 VOMITING meloxicam [MELOXICAM] AdvReac Intermediate VOMITING Unverified 12/24/19 19:14 NSAIDS (Non-Steroidal AdvReac Intermediate VOMITING Unverified 12/24/19 19:14 Anti-Inflamma [NSAIDS (NON-STEROIDAL ANTI-INFLAMMA] Assessment & Plan Assessment & Plan (1) MDD (major depressive disorder), recurrent severe, without psychosis: Status: Acute Code(s): F33.2 - Major depressive disorder, recurrent severe without psychotic features Assessment and Plan: Sonam is a 45 y.o. female who carries a dx of Severe MDD, recurrent. She was in the [employer], has VA services. Pt presented to the [facility] 03/20/21 via EMS from her SNF (lives at [facility] due to chronic mental health issues) due to SI with a plan to starve herself. Has not been attending to ADLs and reports at baseline she has seasonal affective sx but recently depression and SI are worse, feels more isolated. Pt has co-morbid medical diagnosis of insulin dependent diabetes, hypothyroidism (on levothyroxine). Pt has long hx of IPLOC for depression, SI. Hx of SA by OD on tylenol in 2019 leading to IPLOC at [facility] in [place]. Plan: Pt says she feels her current med regimen has been helpful, likes her psychiatrist. Reports recent med change of an increase in lamictal to 200 mg QHS in 01/26 has been helpful. Takes Propranolol is for tremors, which she attributes to wellbutrin dosage. She is currently on two different dosages of levothyroxine. pt agrees to increase wellbutrin to 450 mg daily as of 03/22. Monitor response to medications. Monitor for safety in the milieu. Discharge on stabilization. Patient seen. Chart reviewed. Discussed with team. Obtain collateral contact info?as needed I spent minutes with the patient and/or on the patient floor today, greater than?50% of which was spent counseling/coordinating care. Reason for contiued inpatient stay Substantial Risk for: harm to self, inability to function, rapid decompensation and med/psych decompensation
[2021-03-26 11:05] VITALS: BP 92/66; PULSE 113
[2021-03-26] MEDS: Propranolol HCL 10 MG TABLET PO ×2 (11:05→20:35)
[2021-03-26 11:07] VITALS: BP 92/66; PULSE 113
[2021-03-26 12:39] LABS: Glucose, Whole Blood 246 mg/dL (60-115)
[2021-03-26 17:52] LABS: Glucose, Whole Blood 87 mg/dL (60-115)
[2021-03-26 20:26] LABS: Glucose, Whole Blood 238 mg/dL (60-115)
[2021-03-26] MEDS: Loratadine 10 MG TABLET PO (20:34)
[2021-03-26] MEDS: Atorvastatin Calcium 40 MG TABLET PO (20:34)
[2021-03-26] MEDS: lamoTRIgine 100 MG TABLET 200 MG PO (20:34)
[2021-03-26 20:35] VITALS: BP 122/67; PULSE 114
[2021-03-26] MEDS: traZODone HCL 100 MG TABLET PO (20:35)
[2021-03-26] MEDS: Folic Acid 1 MG TABLET PO (20:37)
[2021-03-26] MEDS: QUEtiapine Fumarate 50 MG TABLET PO (20:37)
[2021-03-26 20:40] VITALS: BP 122/67; PULSE 114; TEMP 36.6; O2SAT 97
[2021-03-26] MEDS: Insulin Glargine,Hum.rec.anlog 100 UNIT/ML 10 ML VIAL 30 UNIT SUBCUT (20:51)
[2021-03-27] MEDS: Levothyroxine Sodium 112 MCG, Levothyroxine Sodium 25 MCG 137 MCG PO (06:30)
[2021-03-27] MEDS: traMADoL HCL 50 MG TABLET PO ×2 (06:30→20:35)
--- NOTE | 2021-03-27 06:54 | PC.NURSE ---
shower-as per plan from last evening patient was oob after 0600 medications and took a shower.
[2021-03-27] MEDS: Famotidine 20 MG TABLET PO ×2 (08:16→20:33)
[2021-03-27] MEDS: Fluticasone Propionate 100 MCG BLST.W.DEV 1 PUFF INHALE ×2 (08:16→20:39)
[2021-03-27] MEDS: Escitalopram Oxalate 10 MG TABLET 30 MG PO (08:16)
[2021-03-27 08:17] VITALS: BP 132/63; PULSE 99
[2021-03-27 08:17] LABS: Glucose, Whole Blood 120 mg/dL (60-115)
[2021-03-27] MEDS: Propranolol HCL 10 MG TABLET PO ×2 (08:17→20:35)
[2021-03-27] MEDS: buPROPion HCl XL 150 MG TAB.ER.24H 450 MG PO (08:17)
[2021-03-27] MEDS: Cholecalciferol (Vitamin D3) 25 MCG TABLET 50 MCG PO (08:17)
[2021-03-27] MEDS: QUEtiapine Fumarate 25 MG TABLET PO (08:17)
[2021-03-27] MEDS: Acetaminophen 325 MG TABLET 975 MG PO ×3 (08:17→17:53)
[2021-03-27] MEDS: Fluticasone Propionate Nasal 16 GM SPRAY 1 SPRAY NOSTRIL-B ×2 (08:22→20:39)
[2021-03-27 08:24] VITALS: BP 132/63; PULSE 99; RESP 17; TEMP 36.5; O2SAT 98
[2021-03-27] MEDS: Insulin Lispro 100 UNIT/ML 3 ML VIAL 6 UNIT SUBCUT ×2 (09:00→18:16)
[2021-03-27 12:39] LABS: Glucose, Whole Blood 77 mg/dL (60-115)
[2021-03-27] MEDS: QUEtiapine Fumarate 50 MG TABLET PO ×3 (12:41→20:34)
--- NOTE | 2021-03-27 12:54 | P.PNPSI_ITS ---
Subjective Subjective Date of Service: 03/27/21 Reason For Visit: SI Interim History: pt reports she continues to feel depressed and anxious. stating the holidays are very difficult for her and she was hoping to stay through [facility]. she had a difficult day on saturday due to it's being her birthday. she laments it would have been not a great day had she been at [facility] as well as she would not have been able to go out for her birthday ritual, which is to see a movie and eat out. suggests we have made the med changes we are going to make and we should be thinking about discharge this week, as we do not expect further changes while here. she seems to reluctantly accept this position but expresses concern that Faina will be away on vacation from on. asks for seroquel PRNs to be made 50 mg daily, which is accommodated. per staff, attending groups, dep 12/16, and 10/15. social, visible. SI 06/15. holidays are a trigger. doesn't feel safe going home now. restless sleep, soem pain. Mental Status Exam Mental Status Exam Narrative: A&O. in [place], adequate grooming. Good eye contact, attentive. No Tics or Tremors. No abnormal involuntary movements. Calm, cooperative, engaged. Non-pressured speech, spontaneous with regular rate and rhythm, decreased volume and prosody. No prolonged speech latency or dysarthria. Mood is depressed and anxious, affect is generally congruent- overall pt is calm, forthcoming, help seeking. Thoughts are coherent, organized. No known cognitive or memory impairment. Insight/ Judgment limited but adequate. Diagnostics Vital Signs (24Hr): Vital Signs - 24 hr 03/26/21 20:35 03/26/21 20:40 03/27/21 08:17 Temperature 97.8 F Pulse Rate 114 H 114 H 99 Respiratory Rate Blood Pressure 122/67 122/67 132/63 Pulse Oximetry 97 03/27/21 08:24 Temperature 97.7 F Pulse Rate 99 Respiratory Rate 17 Blood Pressure 132/63 Pulse Oximetry 98 BMI result Body Mass Index 32.1 Labs Results: 03/20/21 22:55 03/20/21 22:55 Labs: Laboratory Results - last 48 hr 03/25/21 03/25/21 03/26/21 21:04 21:20 08:42 POC Glucose 120 H 150 H Urine Test NEGATIVE 03/26/21 03/26/21 03/26/21 12:35 17:49 20:20 POC Glucose 246 H 87 238 H Urine Test 03/27/21 03/27/21 08:13 12:34 POC Glucose 120 H 77 Urine Test Medications Medications Current Medications Acetaminophen (Acetaminophen 325 Mg Tablet) 975 mg PO TID@0800,1200,1700 [facility] Last Admin: 03/27/21 12:41 Dose: 975 mg Documented by: Al Hydroxide/Mg Hydroxide (Magnesium Hydrox/Alum Hydrox 30 Ml Oral.Susp) 30 ml PO Q4H PRN PRN Reason: Dyspepsia Albuterol Sulfate (Albuterol Sulfate 90 Mcg 8 Gm Inhaler) 2 puff INHALE Q4H PRN PRN Reason: Shortness Of Breath Atorvastatin Calcium (Atorvastatin Calcium 40 Mg Tablet) 40 mg PO BEDTIME [facility] Last Admin: 03/26/21 20:34 Dose: 40 mg Documented by: Bupropion HCl (Bupropion Hcl Xl 150 Mg Tab.Er.24h) 450 mg PO DAILY [facility] Last Admin: 03/27/21 08:17 Dose: 450 mg Documented by: Escitalopram Oxalate (Escitalopram Oxalate 10 Mg Tablet) 30 mg PO DAILY [facility] Last Admin: 03/27/21 08:16 Dose: 30 mg Documented by: Famotidine (Famotidine 20 Mg Tablet) 20 mg PO BID [facility] Last Admin: 03/27/21 08:16 Dose: 20 mg Documented by: Fluticasone Propionate (Fluticasone Propionate Nasal 16 Gm [place]) 1 spray NOSTR IL-B BID [facility] Last Admin: 03/27/21 08:22 Dose: 1 spray Documented by: Fluticasone Propionate (Fluticasone Propionate 100 Mcg Blst.W.Dev) 1 puff INHALE RBID [facility] Last Admin: 03/27/21 08:16 Dose: 1 puff Documented by: Folic Acid (Folic Acid 1 Mg Tablet) 1 mg PO BEDTIME [facility] Last Admin: 03/26/21 20:37 Dose: 1 mg Documented by: Guaifenesin/Dextromethorphan (Guaifenesin Dm 200/20/10 Ml 10 Ml Syrup) 10 ml PO Q4H PRN PRN Reason: Cough Hydroxyzine HCl (Hydroxyzine Hcl 25 Mg Tablet) 25 mg PO Q6H PRN PRN Reason: Anxiety Insulin Glargine (Insulin Glargine,Hum.Rec.Anlog 100 Unit/Ml 10 Ml Vial) 30 unit SUBCUT BEDTIME [facility] Last Admin: 03/26/21 20:51 Dose: 30 unit Documented by: Insulin Human Lispro (Insulin Lispro 100 Unit/Ml 3 Ml Vial) 6 unit SUBCUT TIDAC [facility] Last Admin: 03/27/21 09:00 Dose: 6 unit Documented by: Lamotrigine (Lamotrigine 100 Mg Tablet) 200 mg PO BEDTIME [facility] Last Admin: 03/26/21 20:34 Dose: 200 mg Documented by: Levothyroxine Sodium (Levothyroxine Sodium 125 Mcg Tablet) 125 mcg PO SuTuWeThSa@0630 [facility] Last Admin: 03/26/21 06:40 Dose: 125 mcg Documented by: Levothyroxine Sodium 112 mcg/ (Levothyroxine Sodium 25 mcg) 137 mcg PO MoFr@0600 [facility] Last Admin: 03/27/21 06:30 Dose: 137 mcg Documented by: Loperamide HCl (Loperamide Hcl 2 Mg Capsule) 4 mg PO Q6H PRN PRN Reason: Diarrhea Loratadine (Loratadine 10 Mg Tablet) 10 mg PO BEDTIME [facility] Last Admin: 03/26/21 20:34 Dose: 10 mg Documented by: Magnesium Hydroxide (Milk Of Magnesia 30 Ml Oral.Susp) 30 ml PO DAILY PRN PRN Reason: Constipation Ondansetron HCl (Ondansetron Odt 4 Mg Tab.Rapdis) 4 mg TRANSLINGU Q4H PRN PRN Reason: Nausea Last Admin: 03/25/21 21:12 Dose: 4 mg Documented by: Prochlorperazine Maleate (Prochlorperazine Maleate 5 Mg Tablet) 10 mg PO BID PRN PRN Reason: Nausea Propranolol HCl (Propranolol Hcl 10 Mg Tablet) 10 mg PO BID [facility]; Protocol Last Admin: 03/27/21 08:17 Dose: 10 mg Documented by: Quetiapine Fumarate (Quetiapine Fumarate 50 Mg Tablet) 50 mg PO BEDTIME [facility] Last Admin: 03/26/21 20:37 Dose: 50 mg Documented by: Quetiapine Fumarate (Quetiapine Fumarate 50 Mg Tablet) 50 mg PO TID PRN PRN Reason: Anxiety Last Admin: 12/20/21 12:41 Dose: 50 mg Documented by: Tramadol HCl (Tramadol Hcl 50 Mg Tablet) 50 mg PO DAILY@0600 [facility] Last Admin: 03/27/21 06:30 Dose: 50 mg Documented by: Tramadol HCl (Tramadol Hcl 50 Mg Tablet) 50 mg PO BEDTIME [facility] Last Admin: 03/26/21 20:34 Dose: 50 mg Documented by: Trazodone HCl (Trazodone Hcl 100 Mg Tablet) 100 mg PO BEDTIME [facility] Last Admin: 03/26/21 20:35 Dose: 100 mg Documented by: Vitamin D (Cholecalciferol (Vitamin D3) 25 Mcg Tablet) 50 mcg PO DAILY [facility] Last Admin: 03/27/21 08:17 Dose: 50 mcg Documented by: Allergies Allergies Allergy/AdvReac Type Severity Reaction Status Date / Time metformin [METFORMIN] Allergy Intermediate VOMITING Unverified 12/24/19 19:14 aspirin [ASA] AdvReac Intermediate VOMITING Unverified 12/24/19 19:14 loratadine [From CLARITIN] AdvReac Intermediate NAUSEA & Unverified 12/24/19 19:14 VOMITING meloxicam [MELOXICAM] AdvReac Intermediate VOMITING Unverified 12/24/19 19:14 NSAIDS (Non-Steroidal AdvReac Intermediate VOMITING Unverified 12/24/19 19:14 Anti-Inflamma [NSAIDS (NON-STEROIDAL ANTI-INFLAMMA] Assessment & Plan Assessment & Plan (1) MDD (major depressive disorder), recurrent severe, without psychosis: Status: Acute Code(s): F33.2 - Major depressive disorder, recurrent severe without psychotic features Assessment and Plan: Hope is a 45 y.o. female who carries a dx of Severe MDD, recurrent. She was in the [employer], has VA services. Pt [facility] [place] [facility] [place] via EMS from her SNF (lives at [facility] due to chronic mental health issues) due to SI with a plan to starve herself. Has not been attending to ADLs and reports at baseline she has seasonal affective sx but recently depression and SI are worse, feels more isolated. Pt has co-morbid medical diagnosis of insulin dependent diabetes, hypothyroidism (on levothyroxine). Pt has long hx of IPLOC for depression, SI. Hx of SA by OD on tylenol in 2019 leading to IPLOC at [facility] in [place]. Plan: Pt says she feels her current med regimen has been helpful, likes her psychiatrist. Reports recent med change of an increase in lamictal to 200 mg QHS in 01/26 has been helpful. Takes Propranolol is for tremors, which she att ributes to wellbutrin dosage. She is currently on two different dosages of levothyroxine. pt agrees to increase wellbutrin to 450 mg daily as of 03/22. Monitor response to medications. Monitor for safety in the milieu. Discharge some time this week, preferably. prior to xmas. Patient seen. Chart reviewed. Discussed with team. Obtain collateral contact info?as needed I spent minutes with the patient and/or on the patient floor today, greater than?50% of which was spent counseling/coordinating care. Reason for contiued inpatient stay Substantial Risk for: harm to self
[2021-03-27 17:49] LABS: Glucose, Whole Blood 143 mg/dL (60-115)
[2021-03-27 20:24] VITALS: BP 125/69; PULSE 121; RESP 18; TEMP 36.7; O2SAT 98
[2021-03-27] MEDS: Insulin Glargine,Hum.rec.anlog 100 UNIT/ML 10 ML VIAL 30 UNIT SUBCUT (20:32)
[2021-03-27] MEDS: lamoTRIgine 100 MG TABLET 200 MG PO (20:33)
[2021-03-27] MEDS: Folic Acid 1 MG TABLET PO (20:34)
[2021-03-27] MEDS: Atorvastatin Calcium 40 MG TABLET PO (20:34)
[2021-03-27] MEDS: traZODone HCL 100 MG TABLET PO (20:34)
[2021-03-27 20:35] VITALS: BP 125/69; PULSE 121
[2021-03-27] MEDS: Loratadine 10 MG TABLET PO (20:36)
[2021-03-28] MEDS: buPROPion HCl XL 150 MG TAB.ER.24H 450 MG PO (08:01)
[2021-03-28] MEDS: Acetaminophen 325 MG TABLET 975 MG PO ×3 (08:02→17:44)
[2021-03-28] MEDS: Escitalopram Oxalate 10 MG TABLET 30 MG PO (08:03)
[2021-03-28] MEDS: traMADoL HCL 50 MG TABLET PO (08:05)
[2021-03-28 08:06] VITALS: BP 108/66; PULSE 107
[2021-03-28] MEDS: Propranolol HCL 10 MG TABLET PO ×2 (08:06→21:15)
[2021-03-28] MEDS: Cholecalciferol (Vitamin D3) 25 MCG TABLET 50 MCG PO (08:06)
[2021-03-28] MEDS: QUEtiapine Fumarate 50 MG TABLET PO ×3 (08:07→21:15)
[2021-03-28] MEDS: Famotidine 20 MG TABLET PO ×2 (08:07→21:15)
[2021-03-28 08:15] LABS: Glucose, Whole Blood 194 mg/dL (60-115)
[2021-03-28 08:25] VITALS: BP 108/66; PULSE 107; TEMP 36.2
[2021-03-28] MEDS: Fluticasone Propionate 100 MCG BLST.W.DEV 1 PUFF INHALE ×2 (10:04→21:17)
[2021-03-28] MEDS: Fluticasone Propionate Nasal 16 GM SPRAY 1 SPRAY NOSTRIL-B ×2 (10:04→21:17)
[2021-03-28] MEDS: Levothyroxine Sodium 125 MCG TABLET PO (11:25)
[2021-03-28] MEDS: Insulin Lispro 100 UNIT/ML 3 ML VIAL 6 UNIT SUBCUT ×2 (12:59→17:44)
[2021-03-28 13:00] LABS: Glucose, Whole Blood 251 mg/dL (60-115)
--- NOTE | 2021-03-28 14:24 | HO.PSYCHPN ---
Subjective Subjective Date of Service: 03/28/21 Reason For Visit: SI Interim History: pt seen attending multiple groups today. seems a bit more animated than previously, states as much. mood improved to depression 11/15. relieved to know she will be staying her through the holiday, while janee is on vacation. feels the seroquel dose increase is helping with her chronic pain a bit. per staff, visible, pleasant, anxious and depressed. feeling improved yesterday. no SI for here but concerned for if she leaves. slept well. Mental Status Exam Mental Status Exam Narrative: A&O. in street clothes, adequate grooming. Good eye contact, attentive. No Tics or Tremors. No abnormal involuntary movements. Calm, cooperative, engaged. Non-pressured speech, spontaneous with regular rate and rhythm, nml volume and prosody. No prolonged speech latency or dysarthria. Mood is less depressed than prior, affect is generally congruent but more flexible - overall pt is calm, forthcoming, help seeking. Thoughts are coherent, organized. No known cognitive or memory impairment. Insight/ Judgment limited but adequate. Diagnostics Vital Signs (24Hr): Vital Signs - 24 hr 03/27/21 20:24 03/27/21 20:35 03/28/21 08:06 Temperature 98.1 F Pulse Rate 121 H 121 H 107 H Respiratory Rate 18 Blood Pressure 125/69 125/69 108/66 Pulse Oximetry 98 03/28/21 08:25 Temperature 97.2 F Pulse Rate 107 H Respiratory Rate Blood Pressure 108/66 Pulse Oximetry BMI result Body Mass Index 32.1 Labs Results: 03/20/21 22:55 03/20/21 22:55 Labs: Laboratory Results - last 48 hr 03/26/21 03/26/21 03/27/21 17:49 20:20 08:13 POC Glucose 87 238 H 120 H 03/27/21 03/27/21 03/28/21 12:34 17:44 08:10 POC Glucose 77 143 H 194 H 03/28/21 12:56 POC Glucose 251 H Medications Medications Current Medications Acetaminophen (Acetaminophen 325 Mg Tablet) 975 mg PO TID@0800,1200,1700 [facility] Last Admin: 03/28/21 13:00 Dose: 975 mg Documented by: Al Hydroxide/Mg Hydroxide (Magnesium Hydrox/Alum Hydrox 30 Ml Oral.Susp) 30 ml PO Q4H PRN PRN Reason: Dyspepsia Albuterol Sulfate (Albuterol Sulfate 90 Mcg 8 Gm Inhaler) 2 puff INHALE Q4H PRN PRN Reason: Shortness Of Breath Atorvastatin Calcium (Atorvastatin Calcium 40 Mg Tablet) 40 mg PO BEDTIME [facility] Last Admin: 03/27/21 20:34 Dose: 40 mg Documented by: Bupropion HCl (Bupropion Hcl Xl 150 Mg Tab.Er.24h) 450 mg PO DAILY [facility] Last Admin: 03/28/21 08:01 Dose: 450 mg Documented by: Escitalopram Oxalate (Escitalopram Oxalate 10 Mg Tablet) 30 mg PO DAILY [facility] Last Admin: 03/28/21 08:03 Dose: 30 mg Documented by: Famotidine (Famotidine 20 Mg Tablet) 20 mg PO BID [facility] Last Admin: 03/28/21 08:07 Dose: 20 mg Documented by: Fluticasone Propionate (Fluticasone Propionate Nasal 16 Gm [place]) 1 spray NOSTRIL-B BID [facility] Last Admin: 03/28/21 10:04 Dose: 1 spray Documented by: Fluticasone Propionate (Fluticasone Propionate 100 Mcg Blst.W.Dev) 1 puff INHALE RBID [facility] Last Admin: 03/28/21 10:04 Dose: 1 puff Documented by: Folic Acid (Folic Acid 1 Mg Tablet) 1 mg PO BEDTIME [facility] Last Admin: 03/27/21 20:34 Dose: 1 mg Documented by: Guaifenesin/Dextromethorphan (Guaifenesin Dm 200/20/10 Ml 10 Ml Syrup) 10 ml PO Q4H PRN PRN Reason: Cough Hydroxyzine HCl (Hydroxyzine Hcl 25 Mg Tablet) 25 mg PO Q6H PRN PRN Reason: Anxiety Insulin Glargine (Insulin Glargine,Hum.Rec.Anlog 100 Unit/Ml 10 Ml Vial) 30 unit SUBCUT BEDTIME [facility] Last Admin: 03/27/21 20:32 Dose: 30 unit Documented by: Insulin Human Lispro (Insulin Lispro 100 Unit/Ml 3 Ml Vial) 6 unit SUBCUT TIDAC [facility] Last Admin: 03/28/21 12:59 Dose: 6 unit Documented by: Lamotrigine (Lamotrigine 100 Mg Tablet) 200 mg PO BEDTIME [facility] Last Admin: 03/27/21 20:33 Dose: 200 mg Documented by: Levothyroxine Sodium 112 mcg/ (Levothyroxine Sodium 25 mcg) 137 mcg PO MoFr@0600 [facility] Last Admin: 03/27/21 06:30 Dose: 137 mcg Documented by: Levothyroxine Sodium (Levothyroxine Sodium 125 Mcg Tablet) 125 mcg PO SuTuWeThSa@0630 [facility] Last Admin: 03/28/21 11:25 Dose: 125 mcg Documented by: Loperamide HCl (Loperamide Hcl 2 Mg Capsule) 4 mg PO Q6H PRN PRN Reason: Diarrhea Loratadine (Loratadine 10 Mg Tablet) 10 mg PO BEDTIME [facility] Last Admin: 03/27/21 20:36 Dose: 10 mg Documented by: Magnesium Hydroxide (Milk Of Magnesia 30 Ml Oral.Susp) 30 ml PO DAILY PRN PRN Reason: Constipation Ondansetron HCl (Ondansetron Odt 4 Mg Tab.Rapdis) 4 mg TRANSLINGU Q4H PRN PRN Reason: Nausea Last Admin: 03/25/21 21:12 Dose: 4 mg Documented by: Prochlorperazine Maleate (Prochlorperazine Maleate 5 Mg Tablet) 10 mg PO BID PRN PRN Reason: Nausea Propranolol HCl (Propranolol Hcl 10 Mg Tablet) 10 mg PO BID [facility]; Protocol Last Admin: 03/28/21 08:06 Dose: 10 mg Documented by: Quetiapine Fumarate (Quetiapine Fumarate 50 Mg Tablet) 50 mg PO BEDTIME [facility] Last Admin: 03/27/21 20:34 Dose: 50 mg Documented by: Quetiapine Fumarate (Quetiapine Fumarate 50 Mg Tablet) 50 mg PO TID PRN PRN Reason: Anxiety Last Admin: 03/28/21 13:01 Dose: 50 mg Documented by: Tramadol HCl (Tramadol Hcl 50 Mg Tablet) 50 mg PO DAILY@0600 [facility] Last Admin: 03/28/21 08:05 Dose: 50 mg Documented by: Tramadol HCl (Tramadol Hcl 50 Mg Tablet) 50 mg PO BEDTIME [facility] Last Admin: 03/27/21 20:35 Dose: 50 mg Documented by: Trazodone HCl (Trazodone Hcl 100 Mg Tablet) 100 mg PO BEDTIME [facility] Last Admin: 03/27/21 20:34 Dose: 100 mg Documented by: Vitamin D (Cholecalciferol (Vitamin D3) 25 Mcg Tablet) 50 mcg PO DAILY [facility] Last Admin: 03/28/21 08:06 Dose: 50 mcg Documented by: Allergies Allergies Allergy/AdvReac Type Severity Reaction Status Date / Time metformin [METFORMIN] Allergy Intermediate VOMITING Unverified 12/24/19 19:14 aspirin [ASA] AdvReac Intermediate VOMITING Unverified 12/24/19 19:14 loratadine [From CLARITIN] AdvReac Intermediate NAUSEA & Unverified 12/24/19 19:14 VOMITING meloxicam [MELOXICAM] AdvReac Intermediate VOMITING Unverified 12/24/19 19:14 NSAIDS (Non-Steroidal AdvReac Intermediate VOMITING Unverified 12/24/19 19:14 Anti-Inflamma [NSAIDS (NON-STEROIDAL ANTI-INFLAMMA] Assessment & Plan Assessment & Plan (1) MDD (major depressive disorder), recurrent severe, without psychosis: Status: Acute Code(s): F33.2 - Major depressive disorder, recurrent severe without psychotic features Assessment and Plan: Hope is a 45 y.o. female who carries a dx of Severe MDD, recurrent. She was in the [employer], has [employer] services. Pt [place] [facility] [place] via EMS from her SNF (lives at [facility] due to chronic mental health issues) due to SI with a plan to starve herself. Has not been attending to ADLs and reports at baseline she has seasonal affective sx but recently depression and SI are worse, feels more isolated. Pt has co-morbid medical diagnosis of insulin dependent diabetes, hypothyroidism (on levothyroxine). Pt has long hx of IPLOC for depression, SI. Hx of SA by OD on tylenol in 2019 leading to IPLOC at [facility] in [place]. Plan: Pt says she feels her current med regimen has been helpful, likes her psychiatrist. Reports recent med change of an increase in lamictal to 200 mg QHS in 01/26 has been helpful. Takes Propranolol is for tremors, which she attributes to wellbutrin dosage. She is currently on two different dosages of levothyroxine. pt agrees to increase wellbutrin to 450 mg daily as of 03/22. seroquel PRN dosing also increased from 25 mg per dose to 50 mg per dose. hold through return of her assistant case manager janee from vacation and after passing of xmas. I spent minutes with the patient and/or on the patient floor today, greater than?50% of which was spent counseling/coordinating care. Reason for contiued inpatient stay Substantial Risk for: harm to self, inability to function and rapid decompensation
[2021-03-28 17:52] LABS: Glucose, Whole Blood 205 mg/dL (60-115)
[2021-03-28] MEDS: Insulin Glargine,Hum.rec.anlog 100 UNIT/ML 10 ML VIAL 30 UNIT SUBCUT (21:13)
[2021-03-28] MEDS: Atorvastatin Calcium 40 MG TABLET PO (21:14)
[2021-03-28] MEDS: Folic Acid 1 MG TABLET PO (21:14)
[2021-03-28] MEDS: traZODone HCL 100 MG TABLET PO (21:14)
[2021-03-28] MEDS: Loratadine 10 MG TABLET PO (21:14)
[2021-03-28 21:15] VITALS: BP 111/58; PULSE 106; RESP 20; TEMP 36.6; O2SAT 96
[2021-03-28] MEDS: lamoTRIgine 100 MG TABLET 200 MG PO (21:15)
[2021-03-29 02:01] LABS: Glucose, Whole Blood 249 mg/dL (60-115)
[2021-03-29 06:00] VITALS: BP 114/67; PULSE 115; RESP 18; TEMP 36.6; O2SAT 98
[2021-03-29] MEDS: Levothyroxine Sodium 125 MCG TABLET PO (06:49)
[2021-03-29] MEDS: Acetaminophen 325 MG TABLET 975 MG PO ×3 (07:53→17:58)
[2021-03-29] MEDS: traMADoL HCL 50 MG TABLET PO ×2 (07:54→21:08)
[2021-03-29] MEDS: QUEtiapine Fumarate 50 MG TABLET PO ×3 (07:54→21:07)
[2021-03-29] MEDS: Fluticasone Propionate Nasal 16 GM SPRAY 1 SPRAY NOSTRIL-B ×2 (07:55→21:09)
[2021-03-29 08:44] LABS: Glucose, Whole Blood 300 mg/dL (60-115)
[2021-03-29] MEDS: Insulin Lispro 100 UNIT/ML 3 ML VIAL 6 UNIT SUBCUT ×3 (08:46→17:58)
[2021-03-29 08:47] VITALS: BP 114/67; PULSE 115
[2021-03-29] MEDS: buPROPion HCl XL 150 MG TAB.ER.24H 450 MG PO (08:47)
[2021-03-29] MEDS: Propranolol HCL 10 MG TABLET PO ×2 (08:47→21:08)
[2021-03-29] MEDS: Cholecalciferol (Vitamin D3) 25 MCG TABLET 50 MCG PO (08:47)
[2021-03-29] MEDS: Famotidine 20 MG TABLET PO ×2 (08:47→21:07)
[2021-03-29] MEDS: Escitalopram Oxalate 10 MG TABLET 30 MG PO (08:48)
[2021-03-29] MEDS: Fluticasone Propionate 100 MCG BLST.W.DEV 1 PUFF INHALE ×2 (08:49→21:09)
[2021-03-29 09:36] VITALS: BP 114/67; PULSE 115; RESP 18; TEMP 36.7
[2021-03-29 12:49] LABS: Glucose, Whole Blood 170 mg/dL (60-115)
--- NOTE | 2021-03-29 13:49 | HO.PSYCHPN ---
Subjective Subjective Date of Service: 03/29/21 Reason For Visit: SI Interim History: pt reports she slept well last night and continues to feel her mood is improving. agreeable to tentative DC date of next saturday. no other complaints or requests. per staff, attending groups. dep/anx continue but improved. pleasant, isolative. eating and sleeping well. 6 dep, 4/ anx. Mental Status Exam Mental Status Exam Narrative: A&O. in street clothes, adequate grooming. Good eye contact, attentive. No Tics or Tremors. No abnormal involuntary movements. Calm, cooperative, engaged. Non-pressured speech, spontaneous with regular rate and rhythm, nml volume and prosody. No prolonged speech latency or dysarthria. Mood is less depressed than prior, affect is generally congruent but more flexible - overall pt is calm, forthcoming, help seeking. Thoughts are coherent, organized. No known cognitive or memory impairment. Insight/ Judgment limited but adequate. Diagnostics Vital Signs (24Hr): Vital Signs - 24 hr 03/28/21 21:15 03/29/21 06:00 03/29/21 08:47 Temperature 97.8 F 98 F Pulse Rate 106 H 115 H 115 H Respiratory Rate 20 18 Blood Pressure 111/58 L 114/67 114/67 Pulse Oximetry 96 98 03/29/21 09:36 Temperature 98.0 F Pulse Rate 115 H Respiratory Rate 18 Blood Pressure 114/67 Pulse Oximetry BMI result Body Mass Index 32.1 Labs Results: 03/20/21 22:55 03/20/21 22:55 Labs: Laboratory Results - last 48 hr 03/27/21 03/28/21 03/28/21 17:44 08:10 12:56 POC Glucose 143 H 194 H 251 H 03/28/21 03/28/21 03/29/21 17:43 21:11 08:40 POC Glucose 205 H 249 H 300 H 03/29/21 12:45 POC Glucose 170 H Medications Medications Current Medications Acetaminophen (Acetaminophen 325 Mg Tablet) 975 mg PO TID@0800,1200,1700 [facility] Last Admin: 03/29/21 12:58 Dose: 975 mg Documented by: Al Hydroxide/Mg Hydroxide (Magnesium Hydrox/Alum Hydrox 30 Ml Oral.Susp) 30 ml PO Q4H PRN PRN Reason: Dyspepsia Albuterol Sulfate (Albuterol Sulfate 90 Mcg 8 Gm Inhaler) 2 puff INHALE Q4H PRN PRN Reason: Shortness Of Breath Atorvastatin Calcium (Atorvastatin Calcium 40 Mg Tablet) 40 mg PO BEDTIME [facility] Last Admin: 03/28/21 21:14 Dose: 40 mg Documented by: Bupropion HCl (Bupropion Hcl Xl 150 Mg Tab.Er.24h) 450 mg PO DAILY [facility] Last Admin: 03/29/21 08:47 Dose: 450 mg Documented by: Escitalopram Oxalate (Escitalopram Oxalate 10 Mg Tablet) 30 mg PO DAILY [facility] Last Admin: 03/29/21 08:48 Dose: 30 mg Documented by: Famotidine (Famotidine 20 Mg Tablet) 20 mg PO BID [facility] Last Admin: 03/29/21 08:47 Dose: 20 mg Documented by: Fluticasone Propionate (Fluticasone Propionate Nasal 16 Gm [place]) 1 spray NOSTRIL-B BID [facility] Last Admin: 03/29/21 07:55 Dose: 1 spray Documented by: Fluticasone Propionate (Fluticasone Propionate 100 Mcg Blst.W.Dev) 1 puff INHALE RBID [facility] Last Admin: 03/29/21 08:49 Dose: 1 puff Documented by: Folic Acid (Folic Acid 1 Mg Tablet) 1 mg PO BEDTIME [facility] Last Admin: 03/28/21 21:14 Dose: 1 mg Documented by: Guaifenesin/Dextromethorphan (Guaifenesin Dm 200/20/10 Ml 10 Ml Syrup) 10 ml PO Q4H PRN PRN Reason: Cough Hydroxyzine HCl (Hydroxyzine Hcl 25 Mg Tablet) 25 mg PO Q6H PRN PRN Reason: Anxiety Insulin Glargine (Insulin Glargine,Hum.Rec.Anlog 100 Unit/Ml 10 Ml Vial) 30 unit SUBCUT BEDTIME [facility] Last Admin: 03/28/21 21:13 Dose: 30 unit Documented by: Insulin Human Lispro (Insulin Lispro 100 Unit/Ml 3 Ml Vial) 6 unit SUBCUT TIDAC [facility] Last Admin: 03/29/21 12:49 Dose: 6 unit Documented by: Lamotrigine (Lamotrigine 100 Mg Tablet) 200 mg PO BEDTIME [facility] Last Admin: 03/28/21 21:15 Dose: 200 mg Documented by: Levothyroxine Sodium 112 mcg/ (Levothyroxine Sodium 25 mcg) 137 mcg PO MoFr@0600 [facility] Last Admin: 03/27/21 06:30 Dose: 137 mcg Documented by: Levothyroxine Sodium (Levothyroxine Sodium 125 Mcg Tablet) 125 mcg PO SuTuWeThSa@0630 [facility] Last Admin: 03/29/21 06:49 Dose: 125 mcg Documented by: Loperamide HCl (Loperamide Hcl 2 Mg Capsule) 4 mg PO Q6H PRN PRN Reason: Diarrhea Loratadine (Loratadine 10 Mg Tablet) 10 mg PO BEDTIME [facility] Last Admin: 03/28/21 21:14 Dose: 10 mg Documented by: Magnesium Hydroxide (Milk Of Magnesia 30 Ml Oral.Susp) 30 ml PO DAILY PRN PRN Reason: Constipation Ondansetron HCl (Ondansetron Odt 4 Mg Tab.Rapdis) 4 mg TRANSLINGU Q4H PRN PRN Reason: Nausea Last Admin: 03/25/21 21:12 Dose: 4 mg Documented by: Prochlorperazine Maleate (Prochlorperazine Maleate 5 Mg Tablet) 10 mg PO BID PRN PRN Reason: Nausea Propranolol HCl (Propranolol Hcl 10 Mg Tablet) 10 mg PO BID [facility]; Protocol Last Admin: 03/29/21 08:47 Dose: 10 mg Documented by: Quetiapine Fumarate (Quetiapine Fumarate 50 Mg Tablet) 50 mg PO BEDTIME [facility] Last Admin: 03/28/21 21:15 Dose: 50 mg Documented by: Quetiapine Fumarate (Quetiapine Fumarate 50 Mg Tablet) 50 mg PO TID PRN PRN Reason: Anxiety Last Admin: 03/29/21 12:59 Dose: 50 mg Documented by: Tramadol HCl (Tramadol Hcl 50 Mg Tablet) 50 mg PO BID@0600,2100 [facility] Last Admin: 03/29/21 07:54 Dose: 50 mg Documented by: Trazodone HCl (Trazodone Hcl 100 Mg Tablet) 100 mg PO BEDTIME [facility] Last Admin: 03/28/21 21:14 Dose: 100 mg Documented by: Vitamin D (Cholecalciferol (Vitamin D3) 25 Mcg Tablet) 50 mcg PO DAILY [facility] Last Admin: 03/29/21 08:47 Dose: 50 mcg Documented by: Allergies Allergies Allergy/AdvReac Type Severity Reaction Status Date / Time metformin [METFORMIN] Allergy Intermediate VOMITING Unverified 12/24/19 19:14 aspirin [ASA] AdvReac Intermediate VOMITING Unverified 12/24/19 19:14 loratadine [From CLARITIN] AdvReac Intermediate NAUSEA & Unverified 12/24/19 19:14 VOMITING meloxicam [MELOXICAM] AdvReac Intermediate VOMITING Unverified 12/24/19 19:14 NSAIDS (Non-Steroidal AdvReac Intermediate VOMITING Unverified 12/24/19 19:14 Anti-Inflamma [NSAIDS (NON-STEROIDAL ANTI-INFLAMMA] Assessment & Plan Assessment & Plan (1) MDD (major depressive disorder), recurrent severe, without psychosis: Status: Acute Code(s): F33.2 - Major depressive disorder, recurrent severe without psychotic features Assessment and Plan: Hope is a 45 y.o. female who carries a dx of Severe MDD, recurrent. She was in the [employer], has VA services. Pt presented to the [place] ED 03/20/21 via EMS from her SNF (lives at [facility] due to chronic mental health issues) due to SI with a plan to starve herself. Has not been attending to ADLs and reports at baseline she has seasonal affective sx but recently depression and SI are worse, feels more isolated. Pt has co-morbid medical diagnosis of insulin dependent diabetes, hypothyroidism (on levothyroxine). Pt has long hx of IPLOC for depression, SI. Hx of SA by OD on tylenol in 2019 leading to IPLOC at [facility] in [place]. Plan: Pt says she feels her current med regimen has been helpful, likes her psychiatrist. Reports recent med change of an increase in lamictal to 200 mg QHS in 01/26 has been helpful. Takes Propranolol is for tremors, which she attributes to wellbutrin dosage. She is currently on two different dosages of levothyroxine. pt agrees to increase wellbutrin to 450 mg daily as of 03/22. seroquel PRN dosing also increased from 25 mg per dose to 50 mg per dose. hold through return of her patient case manager janee from vacation and after passing of xmas. DC tentatively scheduled for 04/04. I spent minutes with the patient and/or on the patient floor today, greater than?50% of which was spent counseling/coordinating care. Reason for contiued inpatient stay Substantial Risk for: harm to self
[2021-03-29 20:09] LABS: Glucose, Whole Blood 186 mg/dL (60-115)
[2021-03-29 21:01] LABS: Glucose, Whole Blood 180 mg/dL (60-115)
[2021-03-29] MEDS: lamoTRIgine 100 MG TABLET 200 MG PO (21:07)
[2021-03-29] MEDS: Folic Acid 1 MG TABLET PO (21:07)
[2021-03-29] MEDS: traZODone HCL 100 MG TABLET PO (21:07)
[2021-03-29] MEDS: Atorvastatin Calcium 40 MG TABLET PO (21:07)
[2021-03-29 21:08] VITALS: BP 123/78; PULSE 107
[2021-03-29] MEDS: Loratadine 10 MG TABLET PO (21:08)
[2021-03-29] MEDS: Insulin Glargine,Hum.rec.anlog 100 UNIT/ML 10 ML VIAL 30 UNIT SUBCUT (21:09)
[2021-03-29 21:17] VITALS: BP 123/78; PULSE 107; RESP 18; TEMP 36.8; O2SAT 100
[2021-03-30] MEDS: traMADoL HCL 50 MG TABLET PO ×2 (06:36→20:27)
[2021-03-30] MEDS: Levothyroxine Sodium 125 MCG TABLET PO (06:37)
[2021-03-30] MEDS: Acetaminophen 325 MG TABLET 975 MG PO ×3 (08:41→17:53)
[2021-03-30 08:42] VITALS: BP 115/70; PULSE 97
[2021-03-30 08:42] LABS: Glucose, Whole Blood 152 mg/dL (60-115)
[2021-03-30] MEDS: Fluticasone Propionate 100 MCG BLST.W.DEV 1 PUFF INHALE ×2 (08:42→20:25)
[2021-03-30] MEDS: Fluticasone Propionate Nasal 16 GM SPRAY 1 SPRAY NOSTRIL-B ×2 (08:42→20:26)
[2021-03-30] MEDS: Propranolol HCL 10 MG TABLET PO ×2 (08:42→20:28)
[2021-03-30] MEDS: Famotidine 20 MG TABLET PO ×2 (08:43→20:30)
[2021-03-30] MEDS: Cholecalciferol (Vitamin D3) 25 MCG TABLET 50 MCG PO (08:44)
[2021-03-30] MEDS: Escitalopram Oxalate 10 MG TABLET 30 MG PO (08:44)
[2021-03-30] MEDS: QUEtiapine Fumarate 50 MG TABLET PO ×3 (08:46→20:30)
[2021-03-30] MEDS: buPROPion HCl XL 150 MG TAB.ER.24H 450 MG PO (09:00)
[2021-03-30] MEDS: Insulin Lispro 100 UNIT/ML 3 ML VIAL 6 UNIT SUBCUT ×3 (09:01→18:11)
[2021-03-30 12:57] LABS: Glucose, Whole Blood 126 mg/dL (60-115)
[2021-03-30 13:00] VITALS: BP 101/55; PULSE 95; RESP 16; TEMP 36.6; O2SAT 97
--- NOTE | 2021-03-30 13:00 | HO.PSYCHPN ---
Subjective Subjective Date of Service: 03/30/21 Reason For Visit: SI Interim History: no change in presentation from yesterday. continues to feel helped, better than prior to admission, attending groups. states she feels the increased wellbutrin dose starting to kick in. review plan to discharge on saturday, with which she remains in agreement. c/o feeling tired today due to new roommate's medical condition requiring repeated interventions throughout the night. happy with med changes, back pain better incidentally. per staff, dep/anx. easily engaged. attending groups. feels like she's improving. no SI/HI. discharge saturday. Mental Status Exam Mental Status Exam Narrative: A&O. in street clothes, adequate grooming. Good eye contact, attentive. No Tics or Tremors. No abnormal involuntary movements. Calm, cooperative, engaged. Non-pressured speech, spontaneous with regular rate and rhythm, nml volume and prosody. No prolonged speech latency or dysarthria. Mood is less depressed than prior, affect is generally congruent but more flexible - overall pt is calm, forthcoming, help seeking. Thoughts are coherent, organized. No known cognitive or memory impairment. Insight/ Judgment limited but adequate. Diagnostics Vital Signs (24Hr): Vital Signs - 24 hr 03/29/21 21:08 03/29/21 21:17 03/30/21 08:42 Temperature 98.2 F Pulse Rate 107 H 107 H 97 Respiratory Rate 18 Blood Pressure 123/78 123/78 115/70 Pulse Oximetry 100 BMI result Body Mass Index 32.1 Labs Results: 03/20/21 22:55 03/20/21 22:55 Labs: Laboratory Results - last 48 hr 03/28/21 03/28/21 03/28/21 12:56 17:43 21:11 POC Glucose 251 H 205 H 249 H 03/29/21 03/29/21 03/29/21 08:40 12:45 17:54 POC Glucose 300 H 170 H 186 H 03/29/21 03/30/21 03/30/21 20:57 08:39 12:53 POC Glucose 180 H 152 H 126 H Medications Medications Current Medications Acetaminophen (Acetaminophen 325 Mg Tablet) 975 mg PO TID@0800,1200,1700 [facility] Last Admin: 03/30/21 12:57 Dose: 975 mg Documented by: Al Hydroxide/Mg Hydroxide (Magnesium Hydrox/Alum Hydrox 30 Ml Oral.Susp) 30 ml PO Q4H PRN PRN Reason: Dyspepsia Albuterol Sulfate (Albuterol Sulfate 90 Mcg 8 Gm Inhaler) 2 puff INHALE Q4H PRN PRN Reason: Shortness Of Breath Atorvastatin Calcium (Atorvastatin Calcium 40 Mg Tablet) 40 mg PO BEDTIME [facility] Last Admin: 03/29/21 21:07 Dose: 40 mg Documented by: Bupropion HCl (Bupropion Hcl Xl 150 Mg Tab.Er.24h) 450 mg PO DAILY [facility] Last Admin: 03/30/21 09:00 Dose: 450 mg Documented by: Escitalopram Oxalate (Escitalopram Oxalate 10 Mg Tablet) 30 mg PO DAILY [facility] Last Admin: 03/30/21 08:44 Dose: 30 mg Documented by: Famotidine (Famotidine 20 Mg Tablet) 20 mg PO BID [facility] Last Admin: 03/30/21 08:43 Dose: 20 mg Documented by: Fluticasone Propionate (Fluticasone Propionate Nasal 16 Gm [place]) 1 spray NOSTRIL-B BID [facility] Last Admin: 03/30/21 08:42 Dose: 1 spray Documented by: Fluticasone Propionate (Fluticasone Propionate 100 Mcg Blst.W.Dev) 1 puff INHALE RBID [facility] Last Admin: 03/30/21 08:42 Dose: 1 puff Documented by: Folic Acid (Folic Acid 1 Mg Tablet) 1 mg PO BEDTIME [facility] Last Admin: 03/29/21 21:07 Dose: 1 mg Documented by: Guaifenesin/Dextromethorphan (Guaifenesin Dm 200/20/10 Ml 10 Ml Syrup) 10 ml PO Q4H PRN PRN Reason: Cough Hydroxyzine HCl (Hydroxyzine Hcl 25 Mg Tablet) 25 mg PO Q6H PRN PRN Reason: Anxiety Insulin Glargine (Insulin Glargine,Hum.Rec.Anlog 100 Unit/Ml 10 Ml Vial) 30 unit SUBCUT BEDTIME [facility] Last Admin: 03/29/21 21:09 Dose: 30 unit Documented by: Insulin Human Lispro (Insulin Lispro 100 Unit/Ml 3 Ml Vial) 6 unit SUBCUT TIDAC [facility] Last Admin: 03/30/21 12:57 Dose: 6 unit Documented by: Lamotrigine (Lamotrigine 100 Mg Tablet) 200 mg PO BEDTIME [facility] Last Admin: 03/29/21 21:07 Dose: 200 mg Documented by: Levothyroxine Sodium 112 mcg/ (Levothyroxine Sodium 25 mcg) 137 mcg PO MoFr@0600 [facility] Last Admin: 03/27/21 06:30 Dose: 137 mcg Documented by: Levothyroxine Sodium (Levothyroxine Sodium 125 Mcg Tablet) 125 mcg PO SuTuWeThSa@0630 [facility] Last Admin: 03/30/21 06:37 Dose: 125 mcg Documented by: Loperamide HCl (Loperamide Hcl 2 Mg Capsule) 4 mg PO Q6H PRN PRN Reason: Diarrhea Loratadine (Loratadine 10 Mg Tablet) 10 mg PO BEDTIME [facility] Last Admin: 03/29/21 21:08 Dose: 10 mg Documented by: Magnesium Hydroxide (Milk Of Magnesia 30 Ml Oral.Susp) 30 ml PO DAILY PRN PRN Reason: Constipation Ondansetron HCl (Ondansetron Odt 4 Mg Tab.Rapdis) 4 mg TRANSLINGU Q4H PRN PRN Reason: Nausea Last Admin: 03/25/21 21:12 Dose: 4 mg Documented by: Prochlorperazine Maleate (Prochlorperazine Maleate 5 Mg Tablet) 10 mg PO BID PRN PRN Reason: Nausea Propranolol HCl (Propranolol Hcl 10 Mg Tablet) 10 mg PO BID [facility]; Protocol Last Admin: 03/30/21 08:42 Dose: 10 mg Documented by: Quetiapine Fumarate (Quetiapine Fumarate 50 Mg Tablet) 50 mg PO BEDTIME [facility] Last Admin: 03/29/21 21:07 Dose: 50 mg Documented by: Quetiapine Fumarate (Quetiapine Fumarate 50 Mg Tablet) 50 mg PO TID PRN PRN Reason: Anxiety Last Admin: 03/30/21 12:58 Dose: 50 mg Documented by: Tramadol HCl (Tramadol Hcl 50 Mg Tablet) 50 mg PO BID@0600,2100 [facility] Last Admin: 03/30/21 06:36 Dose: 50 mg Documented by: Trazodone HCl (Trazodone Hcl 100 Mg Tablet) 100 mg PO BEDTIME [facility] Last Admin: 03/29/21 21:07 Dose: 100 mg Documented by: Vitamin D (Cholecalciferol (Vitamin D3) 25 Mcg Tablet) 50 mcg PO DAILY [facility] Last Admin: 03/30/21 08:44 Dose: 50 mcg Documented by: Allergies Allergies Allergy/AdvReac Type Severity Reaction Status Date / Time metformin [METFORMIN] Allergy Intermediate VOMITING Unverified 12/24/19 19:14 aspirin [ASA] AdvReac Intermediate VOMITING Unverified 12/24/19 19:14 loratadine [From CLARITIN] AdvReac Intermediate NAUSEA & Unverified 12/24/19 19:14 VOMITING meloxicam [MELOXICAM] AdvReac Intermediate VOMITING Unverified 12/24/19 19:14 NSAIDS (Non-Steroidal AdvReac Intermediate VOMITING Unverified 12/24/19 19:14 Anti-Inflamma [NSAIDS (NON-STEROIDAL ANTI-INFLAMMA] Assessment & Plan Assessment & Plan (1) MDD (major depressive disorder), recurrent severe, without psychosis: Status: Acute Code(s): F33.2 - Major depressive disorder, recurrent severe without psychotic features Assessment and Plan: Hope is a 45 y.o. female who carries a dx of Severe MDD, recurrent. She was in the [employer], has VA services. Pt presented to the [facility] ED 03/20/21 via EMS from her SNF (lives at [facility] due to chronic mental health issues) due to SI with a plan to starve herself. Has not been attending to ADLs and reports at baseline she has seasonal affective sx but recently depression and SI are worse, feels more isolated. Pt has co-morbid medical diagnosis of insulin dependent diabetes, hypothyroidism (on levothyroxine). Pt has long hx of IPLOC for depression, SI. Hx of SA by OD on tylenol in 2019 leading to IPLOC at [facility] in [place]. Plan: Pt says she feels her current med regimen has been helpful, likes her psychiatrist. Reports recent med change of an increase in lamictal to 200 mg QHS in 01/26 has been helpful. Takes Propranolol is for tremors, which she attributes to wellbutrin dosage. She is currently on two different dosages of levothyroxine. pt agrees to increase wellbutrin to 450 mg daily as of 03/22. seroquel PRN dosing also increased from 25 mg per dose to 50 mg per dose. 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 DC tentatively scheduled for 04/04. I spent minutes with the patient and/or on the patient floor today, greater than?50% of which was spent counseling/coordinating care. Reason for contiued inpatient stay Substantial Risk for: harm to self
[2021-03-30 18:00] VITALS: BP 107/63; PULSE 109; RESP 16; TEMP 36.3; O2SAT 97
[2021-03-30 18:01] LABS: Glucose, Whole Blood 230 mg/dL (60-115)
[2021-03-30 18:50] VITALS: BMI 32.6
[2021-03-30 20:17] LABS: Glucose, Whole Blood 288 mg/dL (60-115)
[2021-03-30 20:22] VITALS: BP 107/66; PULSE 109; RESP 16; TEMP 36.3; O2SAT 97
[2021-03-30 20:28] VITALS: BP 107/66; PULSE 109
[2021-03-30] MEDS: lamoTRIgine 100 MG TABLET 200 MG PO (20:29)
[2021-03-30] MEDS: Loratadine 10 MG TABLET PO (20:29)
[2021-03-30] MEDS: Atorvastatin Calcium 40 MG TABLET PO (20:29)
[2021-03-30] MEDS: traZODone HCL 100 MG TABLET PO (20:30)
[2021-03-30] MEDS: Folic Acid 1 MG TABLET PO (20:31)
[2021-03-30] MEDS: Insulin Glargine,Hum.rec.anlog 100 UNIT/ML 10 ML VIAL 30 UNIT SUBCUT (20:32)
[2021-03-31] MEDS: Levothyroxine Sodium 112 MCG, Levothyroxine Sodium 25 MCG 137 MCG PO (06:40)
[2021-03-31] MEDS: traMADoL HCL 50 MG TABLET PO ×2 (06:40→20:55)
[2021-03-31 08:00] VITALS: BP 115/55; PULSE 113; RESP 18; TEMP 36.3; O2SAT 97
--- NOTE | 2021-03-31 08:36 | P.PNPSI_ITS ---
Subjective Subjective Date of Service: 03/31/21 Reason For Visit: SI Subjective Notes: Conditional Voluntary Interim History: Patient was seen and discussed in rounds today. Records were reviewed. She is doing better and has shown improvements. Discharge planning is in place for early next week. She continues to have some depression and anxiety. No active suicidal ideations and feels safe on the unit. She is happy that she is here for the holidays because she finds this time of the year triggering for her. She has been compliant with her medications and taking PRNs with positive benefits. She continues to get monitored for her diabetes, 4 times a day. No complaints. No side effects. Eating and sleeping adequately. No changes were made today Medication Compliance: Yes Side effects from medications: No Review of Systems Review of Systems Yes all other systems are reviewed and are negative Mental Status Exam Mental Status Exam Narrative: In today's visit she is alert, oriented and pleasant. Normal speech. Good eye contact. Affect is appropriate and somewhat varied. No signs of psychosis. No acute signs of depression. No SI/HI. Cognitively intact. Judgment is intact Diagnostics Vital Signs (24Hr): Vital Signs - 24 hr 03/30/21 08:42 03/30/21 13:00 03/30/21 18:00 Temperature 97.8 F 97.3 F Pulse Rate 97 95 109 H Respiratory Rate 16 16 Blood Pressure 115/70 101/55 L 107/63 Pulse Oximetry 97 97 03/30/21 20:22 03/30/21 20:28 Temperature 97.3 F Pulse Rate 109 H 109 H Respiratory Rate 16 Blood Pressure 107/66 107/66 Pulse Oximetry 97 BMI result Body Mass Index 32.6 Labs Results: 03/20/21 22:55 03/20/21 22:55 Labs: Laboratory Results - last 48 hr 03/29/21 03/29/21 03/29/21 08:40 12:45 17:54 POC Glucose 300 H 170 H 186 H 03/29/21 03/30/21 03/30/21 20:57 08:39 12:53 POC Glucose 180 H 152 H 126 H 03/30/21 03/30/21 17:57 20:14 POC Glucose 230 H 288 H Medications Medications Current Medications Acetaminophen (Acetaminophen 325 Mg Tablet) 975 mg PO TID@0800,1200,1700 [facility] Last Admin: 03/30/21 17:53 Dose: 975 mg Documented by: Al Hydroxide/Mg Hydroxide (Magnesium Hydrox/Alum Hydrox 30 Ml Oral.Susp) 30 ml PO Q4H PRN PRN Reason: Dyspepsia Albuterol Sulfate (Albuterol Sulfate 90 Mcg 8 Gm Inhaler) 2 puff INHALE Q4H PRN PRN Reason: Shortness Of Breath Atorvastatin Calcium (Atorvastatin Calcium 40 Mg Tablet) 40 mg PO BEDTIME [facility] Last Admin: 03/30/21 20:29 Dose: 40 mg Documented by: Bupropion HCl (Bupropion Hcl Xl 150 Mg Tab.Er.24h) 450 mg PO DAILY [facility] Last Admin: 03/30/21 09:00 Dose: 450 mg Documented by: Escitalopram Oxalate (Escitalopram Oxalate 10 Mg Tablet) 30 mg PO DAILY [facility] Last Admin: 03/30/21 08:44 Dose: 30 mg Documented by: Famotidine (Famotidine 20 Mg Tablet) 20 mg PO BID [facility] Last Admin: 03/30/21 20:30 Dose: 20 mg Documented by: Fluticasone Propionate (Fluticasone Propionate Nasal 16 Gm [place]) 1 spray NOSTRIL-B BID [facility] Last Admin: 03/30/21 20:26 Dose: 1 spray Documented by: Fluticasone Propionate (Fluticasone Propionate 100 Mcg Blst.W.Dev) 1 puff INHALE RBID [facility] Last Admin: 03/30/21 20:25 Dose: 1 puff Documented by: Folic Acid (Folic Acid 1 Mg Tablet) 1 mg PO BEDTIME [facility] Last Admin: 03/30/21 20:31 Dose: 1 mg Documented by: Guaifenesin/Dextromethorphan (Guaifenesin Dm 200/20/10 Ml 10 Ml Syrup) 10 ml PO Q4H PRN PRN Reason: Cough Hydroxyzine HCl (Hydroxyzine Hcl 25 Mg Tablet) 25 mg PO Q6H PRN PRN Reason: Anxiety Insulin Glargine (Insulin Glargine,Hum.Rec.Anlog 100 Unit/Ml 10 Ml Vial) 30 unit SUBCUT BEDTIME [facility] Last Admin: 03/30/21 20:32 Dose: 30 unit Documented by: Insulin Human Lispro (Insulin Lispro 100 Unit/Ml 3 Ml Vial) 6 unit SUBCUT TIDAC [facility] Last Admin: 03/30/21 18:11 Dose: 6 unit Documented by: Lamotrigine (Lamotrigine 100 Mg Tablet) 200 mg PO BEDTIME [facility] Last Admin: 03/30/21 20:29 Dose: 200 mg Documented by: Levothyroxine Sodium 112 mcg/ (Levothyroxine Sodium 25 mcg) 137 mcg PO MoFr@0600 [facility] Last Admin: 03/31/21 06:40 Dose: 137 mcg Documented by: Levothyroxine Sodium (Levothyroxine Sodium 125 Mcg Tablet) 125 mcg PO SuTuWeThSa@0630 [facility] Last Admin: 03/30/21 06:37 Dose: 125 mcg Documented by: Loperamide HCl (Loperamide Hcl 2 Mg Capsule) 4 mg PO Q6H PRN PRN Reason: Diarrhea Loratadine (Loratadine 10 Mg Tablet) 10 mg PO BEDTIME [facility] Last Admin: 03/30/21 20:29 Dose: 10 mg Documented by: Magnesium Hydroxide (Milk Of Magnesia 30 Ml Oral.Susp) 30 ml PO DAILY PRN PRN Reason: Constipation Ondansetron HCl (Ondansetron Odt 4 Mg Tab.Rapdis) 4 mg TRANSLINGU Q4H PRN PRN Reason: Nausea Last Admin: 03/25/21 21:12 Dose: 4 mg Documented by: Prochlorperazine Maleate (Prochlorperazine Maleate 5 Mg Tablet) 10 mg PO BID PRN PRN Reason: Nausea Propranolol HCl (Propranolol Hcl 10 Mg Tablet) 10 mg PO BID [facility]; Protocol Last Admin: 03/30/21 20:28 Dose: 10 mg Documented by: Quetiapine Fumarate (Quetiapine Fumarate 50 Mg Tablet) 50 mg PO BEDTIME [facility] Last Admin: 03/30/21 20:30 Dose: 50 mg Documented by: Quetiapine Fumarate (Quetiapine Fumarate 50 Mg Tablet) 50 mg PO TID PRN PRN Reason: Anxiety Last Admin: 03/30/21 12:58 Dose: 50 mg Documented by: Tramadol HCl (Tramadol Hcl 50 Mg Tablet) 50 mg PO BID@0600,2100 [facility] Last Admin: 03/31/21 06:40 Dose: 50 mg Documented by: Trazodone HCl (Trazodone Hcl 100 Mg Tablet) 100 mg PO BEDTIME [facility] Last Admin: 03/30/21 20:30 Dose: 100 mg Documented by: Vitamin D (Cholecalciferol (Vitamin D3) 25 Mcg Tablet) 50 mcg PO DAILY [facility] Last Admin: 03/30/21 08:44 Dose: 50 mcg Documented by: Allergies Allergies Allergy/AdvReac Type Severity Reaction Status Date / Time metformin [METFORMIN] Allergy Intermediate VOMITING Unverified 12/24/19 19:14 aspirin [ASA] AdvReac Intermediate VOMITING Unverified 12/24/19 19:14 loratadine [From CLARITIN] AdvReac Intermediate NAUSEA & Unverified 12/24/19 19:14 VOMITING meloxicam [MELOXICAM] AdvReac Intermediate VOMITING Unverified 12/24/19 19:14 NSAIDS (Non-Steroidal AdvReac Intermediate VOMITING Unverified 12/24/19 19:14 Anti-Inflamma [NSAIDS (NON-STEROIDAL ANTI-INFLAMMA] Assessment & Plan Assessment & Plan (1) MDD (major depressive disorder), recurrent severe, without psychosis: Status: Acute Code(s): F33.2 - Major depressive disorder, recurrent severe without psychotic features Assessment and Plan: Hope is a 45 y.o. female who carries a dx of Severe MDD, recurrent. She was in the [employer], has VA services. Pt presented to the [facility] 03/20/21 via EMS from her SNF (lives at [facility] due to chronic mental health issues) due to SI with a plan to starve herself. Has not been attending to ADLs and reports at baseline she has seasonal affective sx but recently depression and SI are worse, feels more isolated. Pt has co-morbid medical diagnosis of insulin dependent diabetes, hypothyroidism (on levothyroxine). Pt has long hx of IPLOC for depression, SI. Hx of SA by OD on tylenol in 2019 leading to IPLOC at [facility] in [place]. Plan: Pt says she feels her current med regimen has been helpful, likes her psychiatrist. Reports recent med change of an increase in lamictal to 200 mg QHS in 01/26 has been helpful. Takes Propranolol is for tremors, which she attrib utes to wellbutrin dosage. She is currently on two different dosages of levothyroxine. pt agrees to increase wellbutrin to 450 mg daily as of 03/22. seroquel PRN dosing also increased from 25 mg per dose to 50 mg per dose. 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 DC tentatively scheduled for 04/04. 03/31: Continue current regimen and plans with early discharge next week in place I spent minutes with the patient and/or on the patient floor today, greater than?50% of which was spent counseling/coordinating care. Reason for contiued inpatient stay Substantial Risk for: other
[2021-03-31] MEDS: Ondansetron ODT 4 MG TAB.RAPDIS TRANSLINGU (09:22)
[2021-03-31] MEDS: Acetaminophen 325 MG TABLET 975 MG PO ×3 (09:23→17:58)
[2021-03-31] MEDS: Cholecalciferol (Vitamin D3) 25 MCG TABLET 50 MCG PO (09:23)
[2021-03-31] MEDS: Escitalopram Oxalate 10 MG TABLET 30 MG PO (09:25)
[2021-03-31] MEDS: buPROPion HCl XL 150 MG TAB.ER.24H 450 MG PO (09:25)
[2021-03-31 09:27] VITALS: BP 115/55; PULSE 113
[2021-03-31] MEDS: Propranolol HCL 10 MG TABLET PO ×2 (09:27→20:55)
[2021-03-31] MEDS: QUEtiapine Fumarate 50 MG TABLET PO ×4 (09:27→20:55)
[2021-03-31] MEDS: Famotidine 20 MG TABLET PO ×2 (09:28→20:54)
[2021-03-31] MEDS: Fluticasone Propionate 100 MCG BLST.W.DEV 1 PUFF INHALE ×2 (09:35→21:03)
[2021-03-31] MEDS: Fluticasone Propionate Nasal 16 GM SPRAY 1 SPRAY NOSTRIL-B ×3 (09:35→21:00)
[2021-03-31] MEDS: Insulin Lispro 100 UNIT/ML 3 ML VIAL 6 UNIT SUBCUT ×3 (09:46→17:58)
[2021-03-31 09:55] LABS: Glucose, Whole Blood 220 mg/dL (60-115)
[2021-03-31 13:17] LABS: Glucose, Whole Blood 247 mg/dL (60-115)
[2021-03-31 18:10] LABS: Glucose, Whole Blood 253 mg/dL (60-115)
[2021-03-31 20:45] VITALS: BP 120/60; PULSE 112; TEMP 36.7; O2SAT 96
[2021-03-31 20:45] LABS: Glucose, Whole Blood 282 mg/dL (60-115)
[2021-03-31] MEDS: Folic Acid 1 MG TABLET PO (20:54)
[2021-03-31 20:55] VITALS: BP 120/60; PULSE 112
[2021-03-31] MEDS: lamoTRIgine 100 MG TABLET 200 MG PO (20:55)
[2021-03-31] MEDS: Loratadine 10 MG TABLET PO (20:55)
[2021-03-31] MEDS: traZODone HCL 100 MG TABLET PO (20:55)
[2021-03-31] MEDS: Atorvastatin Calcium 40 MG TABLET PO (20:55)
[2021-03-31] MEDS: Insulin Glargine,Hum.rec.anlog 100 UNIT/ML 10 ML VIAL 30 UNIT SUBCUT (20:58)
[2021-04-01] MEDS: Levothyroxine Sodium 125 MCG TABLET PO (06:36)
[2021-04-01] MEDS: traMADoL HCL 50 MG TABLET PO ×2 (06:36→21:40)
--- NOTE | 2021-04-01 08:18 | P.PNPSI_ITS ---
Subjective Subjective Date of Service: 04/01/21 Reason For Visit: SI Subjective Notes: Conditional Voluntary Interim History: Patient was seen and discussed in rounds today. She continues to be doing better and has been brighter with decrease in her level of depres nicolás. She has started to have a tremor with the higher dose of Wellbutrin. She is on Inderal 10 mg b.i.d. and states that in the past on this dose of Wellbutrin she has needed to be on a higher amount and I will increase it to 20 mg b.i.d.. Issues of orthostasis discussed. She is well aware of it. She is looking forward to her discharge early next week. Eating and sleeping adequately. No other changes or additions were made today Medication Compliance: Yes Side effects from medications: No Review of Systems Review of Systems She does have a bilateral tremor secondary to medication Yes all other systems are reviewed and are negative Mental Status Exam Mental Status Exam Narrative: In today's visit she is alert, oriented and pleasant. Normal speech. Good eye contact. Affect is appropriate and somewhat varied. No signs of psychosis. No acute signs of depression. No SI/HI. Cognitively intact. Judgment is intact Diagnostics Vital Signs (24Hr): Vital Signs - 24 hr 03/31/21 09:27 03/31/21 20:45 03/31/21 20:55 Temperature 98.1 F Pulse Rate 113 H 112 H 112 H Blood Pressure 115/55 L 120/60 120/60 Pulse Oximetry 96 BMI result Body Mass Index 32.6 Labs Results: 03/20/21 22:55 03/20/21 22:55 Labs: Laboratory Results - last 48 hr 03/30/21 03/30/21 03/30/21 08:39 12:53 17:57 POC Glucose 152 H 126 H 230 H 03/30/21 03/31/21 03/31/21 20:14 09:21 12:47 POC Glucose 288 H 220 H 247 H 03/31/21 03/31/21 18:04 20:38 POC Glucose 253 H 282 H Medications Medications Current Medications Acetaminophen (Acetaminophen 325 Mg Tablet) 975 mg PO TID@0800,1200,1700 [facility] Last Admin: 03/31/21 17:58 Dose: 975 mg Documented by: Al Hydroxide/Mg Hydroxide (Magnesium Hydrox/Alum Hydrox 30 Ml Oral.Susp) 30 ml PO Q4H PRN PRN Reason: Dyspepsia Albuterol Sulfate (Albuterol Sulfate 90 Mcg 8 Gm Inhaler) 2 puff INHALE Q4H PRN PRN Reason: Shortness Of Breath Atorvastatin Calcium (Atorvastatin Calcium 40 Mg Tablet) 40 mg PO BEDTIME [facility] Last Admin: 03/31/21 20:55 Dose: 40 mg Documented by: Bupropion HCl (Bupropion Hcl Xl 150 Mg Tab.Er.24h) 450 mg PO DAILY [facility] Last Admin: 03/31/21 09:25 Dose: 450 mg Documented by: Escitalopram Oxalate (Escitalopram Oxalate 10 Mg Tablet) 30 mg PO DAILY [facility] Last Admin: 03/31/21 09:25 Dose: 30 mg Documented by: Famotidine (Famotidine 20 Mg Tablet) 20 mg PO BID [facility] Last Admin: 03/31/21 20:54 Dose: 20 mg Documented by: Fluticasone Propionate (Fluticasone Propionate Nasal 16 Gm [place]) 1 spray NOSTRIL-B BID [facility] Last Admin: 03/31/21 21:00 Dose: 1 spray Documented by: Fluticasone Propionate (Fluticasone Propionate 100 Mcg Blst.W.Dev) 1 puff INHALE RBID [facility] Last Admin: 03/31/21 21:03 Dose: 1 puff Documented by: Folic Acid (Folic Acid 1 Mg Tablet) 1 mg PO BEDTIME [facility] Last Admin: 03/31/21 20:54 Dose: 1 mg Documented by: Guaifenesin/Dextromethorphan (Guaifenesin Dm 200/20/10 Ml 10 Ml Syrup) 10 ml PO Q4H PRN PRN Reason: Cough Hydroxyzine HCl (Hydroxyzine Hcl 25 Mg Tablet) 25 mg PO Q6H PRN PRN Reason: Anxiety Insulin Glargine (Insulin Glargine,Hum.Rec.Anlog 100 Unit/Ml 10 Ml Vial) 30 unit SUBCUT BEDTIME [facility] Last Admin: 03/31/21 20:58 Dose: 30 unit Documented by: Insulin Human Lispro (Insulin Lispro 100 Unit/Ml 3 Ml Vial) 6 unit SUBCUT TIDAC [facility] Last Admin: 03/31/21 17:58 Dose: 6 unit Documented by: Lamotrigine (Lamotrigine 100 Mg Tablet) 200 mg PO BEDTIME [facility] Last Admin: 03/31/21 20:55 Dose: 200 mg Documented by: Levothyroxine Sodium 112 mcg/ (Levothyroxine Sodium 25 mcg) 137 mcg PO MoFr@0600 [facility] Last Admin: 03/31/21 06:40 Dose: 137 mcg Documented by: Levothyroxine Sodium (Levothyroxine Sodium 125 Mcg Tablet) 125 mcg PO SuTuWeThSa@0630 [facility] Last Admin: 04/01/21 06:36 Dose: 125 mcg Documented by: Loperamide HCl (Loperamide Hcl 2 Mg Capsule) 4 mg PO Q6H PRN PRN Reason: Diarrhea Loratadine (Loratadine 10 Mg Tablet) 10 mg PO BEDTIME [facility] Last Admin: 03/31/21 20:55 Dose: 10 mg Documented by: Magnesium Hydroxide (Milk Of Magnesia 30 Ml Oral.Susp) 30 ml PO DAILY PRN PRN Reason: Constipation Ondansetron HCl (Ondansetron Odt 4 Mg Tab.Rapdis) 4 mg TRANSLINGU Q4H PRN PRN Reason: Nausea Last Admin: 03/31/21 09:22 Dose: 4 mg Documented by: Prochlorperazine Maleate (Prochlorperazine Maleate 5 Mg Tablet) 10 mg PO BID PRN PRN Reason: Nausea Propranolol HCl (Propranolol Hcl 10 Mg Tablet) 10 mg PO BID [facility]; Protocol Last Admin: 03/31/21 20:55 Dose: 10 mg Documented by: Quetiapine Fumarate (Quetiapine Fumarate 50 Mg Tablet) 50 mg PO BEDTIME [facility] Last Admin: 03/31/21 20:55 Dose: 50 mg Documented by: Quetiapine Fumarate (Quetiapine Fumarate 50 Mg Tablet) 50 mg PO TID PRN PRN Reason: Anxiety Last Admin: 03/31/21 18:12 Dose: 50 mg Documented by: Tramadol HCl (Tramadol Hcl 50 Mg Tablet) 50 mg PO BID@0600,2100 [facility] Last Admin: 04/01/21 06:36 Dose: 50 mg Documented by: Trazodone HCl (Trazodone Hcl 100 Mg Tablet) 100 mg PO BEDTIME [facility] Last Admin: 03/31/21 20:55 Dose: 100 mg Documented by: Vitamin D (Cholecalciferol (Vitamin D3) 25 Mcg Tablet) 50 mcg PO DAILY [facility] Last Admin: 03/31/21 09:23 Dose: 50 mcg Documented by: Allergies Allergies Allergy/AdvReac Type Severity Reaction Status Date / Time metformin [METFORMIN] Allergy Intermediate VOMITING Unverified 12/24/19 19:14 aspirin [ASA] AdvReac Intermediate VOMITING Unverified 12/24/19 19:14 loratadine [From CLARITIN] AdvReac Intermediate NAUSEA & Unverified 12/24/19 19:14 VOMITING meloxicam [MELOXICAM] AdvReac Intermediate VOMITING Unverified 12/24/19 19:14 NSAIDS (Non-Steroidal AdvReac Intermediate VOMITING Unverified 12/24/19 19:14 Anti-Inflamma [NSAIDS (NON-STEROIDAL ANTI-INFLAMMA] Assessment & Plan Assessment & Plan (1) MDD (major depressive disorder), recurrent severe, without psychosis: Status: Acute Code(s): F33.2 - Major depressive disorder, recurrent severe without psychotic features Assessment and Plan: Hope is a 45 y.o. female who carries a dx of Severe MDD, recurrent. She was in the [employer], has VA services. Pt presented to the [facility] ED 03/20/21 via EMS from her SNF (lives at [facility] due to chronic mental health issues) due to SI with a plan to starve herself. Has not been attending to ADLs and reports at baseline she has seasonal affective sx but recently depression and SI are worse, feels more isolated. Pt has co-morbid medical diagnosis of insulin dependent diabetes, hypothyroidism (on levothyroxine). Pt has long hx of IPLOC for depression, SI. Hx of SA by OD on tylenol in 2019 leading to IPLOC at [facility] in [place]. Plan: Pt says she feels her current med regimen has been helpful, likes her psychiatrist. Reports recent med change of an increase in lamictal to 200 mg QHS in 01/26 has been helpful. Takes Propranolol is for tremors, which she attributes to wellbutrin dosage. She is currently on two different dosages of levothyroxine. pt agrees to increase wellbutrin to 450 mg daily as of 03/22. seroquel PRN dosing also increased from 25 mg per dose to 50 mg per dose. 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 DC tentatively scheduled for 04/04. 03/31: Continue current regimen and plans with early discharge next week in place 04/01: Continue current regimen with the increase of Inderal to 20 mg b.i.d. I spent minutes with the patient and/or on the patient floor today, greater than?50% of which was spent counseling/coordinating care. Reason for contiued inpatient stay Substantial Risk for: other
[2021-04-01] MEDS: Fluticasone Propionate Nasal 16 GM SPRAY 1 SPRAY NOSTRIL-B ×2 (08:42→21:42)
[2021-04-01] MEDS: Fluticasone Propionate 100 MCG BLST.W.DEV 1 PUFF INHALE ×2 (08:43→21:42)
[2021-04-01 08:44] VITALS: BP 119/70; PULSE 105
[2021-04-01] MEDS: Propranolol HCL 20 MG TABLET PO ×2 (08:44→21:40)
[2021-04-01] MEDS: Ondansetron ODT 4 MG TAB.RAPDIS TRANSLINGU (08:44)
[2021-04-01] MEDS: Acetaminophen 325 MG TABLET 975 MG PO (08:44)
[2021-04-01] MEDS: QUEtiapine Fumarate 50 MG TABLET PO ×2 (08:44→21:41)
[2021-04-01] MEDS: Famotidine 20 MG TABLET PO ×2 (08:45→21:40)
[2021-04-01] MEDS: Cholecalciferol (Vitamin D3) 25 MCG TABLET 50 MCG PO (08:45)
[2021-04-01] MEDS: Escitalopram Oxalate 10 MG TABLET 30 MG PO (08:45)
[2021-04-01] MEDS: buPROPion HCl XL 150 MG TAB.ER.24H 450 MG PO (08:45)
[2021-04-01 09:00] VITALS: BP 119/70; PULSE 105; TEMP 36.6
[2021-04-01 09:02] LABS: Glucose, Whole Blood 240 mg/dL (60-115)
[2021-04-01] MEDS: Insulin Lispro 100 UNIT/ML 3 ML VIAL 6 UNIT SUBCUT (09:54)
[2021-04-01 21:40] VITALS: BP 119/77; PULSE 95
[2021-04-01] MEDS: lamoTRIgine 100 MG TABLET 200 MG PO (21:40)
[2021-04-01] MEDS: traZODone HCL 100 MG TABLET PO (21:40)
[2021-04-01] MEDS: Folic Acid 1 MG TABLET PO (21:40)
[2021-04-01] MEDS: Atorvastatin Calcium 40 MG TABLET PO (21:41)
[2021-04-01] MEDS: Loratadine 10 MG TABLET PO (21:41)
[2021-04-01] MEDS: Insulin Glargine,Hum.rec.anlog 100 UNIT/ML 10 ML VIAL 30 UNIT SUBCUT (21:43)
[2021-04-01 21:44] VITALS: TEMP 36.6; O2SAT 98
[2021-04-02 00:18] LABS: Glucose, Whole Blood 218 mg/dL (60-115)
[2021-04-02] MEDS: Levothyroxine Sodium 125 MCG TABLET PO (06:47)
[2021-04-02] MEDS: traMADoL HCL 50 MG TABLET PO ×2 (06:48→21:53)
[2021-04-02] MEDS: QUEtiapine Fumarate 50 MG TABLET PO ×4 (07:01→21:52)
[2021-04-02 09:37] LABS: Glucose, Whole Blood 148 mg/dL (60-115)
--- NOTE | 2021-04-02 09:45 | P.PNPSI_ITS ---
Subjective Subjective Date of Service: 04/02/21 Reason For Visit: SI Subjective Notes: Conditional Voluntary Guardianship: Yes Medical Problems Affecting Mental Status: No Interim History: Patient was seen and discussed in rounds today. She continues to be doing better and is brighter with less depression. The increase of Inderal has helped with the bilateral tremors from the higher dose of Wellbutrin. She denies any issues of orthostasis. She continues to use her PRNs, specially Seroquel effectively. Eating and sleeping adequately. No complaints or side effects. No changes were made today Review of Systems Review of Systems Yes all other systems are reviewed and are negative Mental Status Exam Mental Status Exam Narrative: In today's visit she is alert, oriented and pleasant. Normal speech. Good eye contact. Affect is appropriate and somewhat varied. No signs of psychosis. No acute signs of depression. No SI/HI. Cognitively intact. Judgment is intact Diagnostics Vital Signs (24Hr): Vital Signs - 24 hr 04/01/21 21:40 04/01/21 21:44 Temperature 97.9 F Pulse Rate 95 Blood Pressure 119/77 Pulse Oximetry 98 BMI result Body Mass Index 32.6 Labs Results: 03/20/21 22:55 03/20/21 22:55 Labs: Laboratory Results - last 48 hr 03/31/21 03/31/21 03/31/21 09:21 12:47 18:04 POC Glucose 220 H 247 H 253 H 03/31/21 04/01/21 04/01/21 20:38 08:32 21:31 POC Glucose 282 H 240 H 218 H 04/02/21 09:31 POC Glucose 148 H Medications Medications Current Medications Acetaminophen (Acetaminophen 325 Mg Tablet) 975 mg PO TID@0800,1200,1700 [facility] Last Admin: 04/01/21 18:44 Dose: Not Given Documented by: Al Hydroxide/Mg Hydroxide (Magnesium Hydrox/Alum Hydrox 30 Ml Oral.Susp) 30 ml PO Q4H PRN PRN Reason: Dyspepsia Albuterol Sulfate (Albuterol Sulfate 90 Mcg 8 Gm Inhaler) 2 puff INHALE Q4H PRN PRN Reason: Shortness Of Breath Atorvastatin Calcium (Atorvastatin Calcium 40 Mg Tablet) 40 mg PO BEDTIME [facility] Last Admin: 04/01/21 21:41 Dose: 40 mg Documented by: Bupropion HCl (Bupropion Hcl Xl 150 Mg Tab.Er.24h) 450 mg PO DAILY [facility] Last Admin: 04/01/21 08:45 Dose: 450 mg Documented by: Escitalopram Oxalate (Escitalopram Oxalate 10 Mg Tablet) 30 mg PO DAILY [facility] Last Admin: 04/01/21 08:45 Dose: 30 mg Documented by: Famotidine (Famotidine 20 Mg Tablet) 20 mg PO BID [facility] Last Admin: 04/01/21 21:40 Dose: 20 mg Documented by: Fluticasone Propionate (Fluticasone Propionate Nasal 16 Gm [place]) 1 spray NOSTRIL-B BID [facility] Last Admin: 04/01/21 21:42 Dose: 1 spray Documented by: Fluticasone Propionate (Fluticasone Propionate 100 Mcg Blst.W.Dev) 1 puff INHALE RBID [facility] Last Admin: 04/01/21 21:42 Dose: 1 puff Documented by: Folic Acid (Folic Acid 1 Mg Tablet) 1 mg PO BEDTIME [facility] Last Admin: 04/01/21 21:40 Dose: 1 mg Documented by: Guaifenesin/Dextromethorphan (Guaifenesin Dm 200/20/10 Ml 10 Ml Syrup) 10 ml PO Q4H PRN PRN Reason: Cough Hydroxyzine HCl (Hydroxyzine Hcl 25 Mg Tablet) 25 mg PO Q6H PRN PRN Reason: Anxiety Insulin Glargine (Insulin Glargine,Hum.Rec.Anlog 100 Unit/Ml 10 Ml Vial) 30 unit SUBCUT BEDTIME [facility] Last Admin: 04/01/21 21:43 Dose: 30 unit Documented by: Insulin Human Lispro (Insulin Lispro 100 Unit/Ml 3 Ml Vial) 6 unit SUBCUT TIDAC [facility] Last Admin: 04/01/21 18:44 Dose: Not Given Documented by: Lamotrigine (Lamotrigine 100 Mg Tablet) 200 mg PO BEDTIME [facility] Last Admin: 04/01/21 21:40 Dose: 200 mg Documented by: Levothyroxine Sodium 112 mcg/ (Levothyroxine Sodium 25 mcg) 137 mcg PO MoFr@0600 [facility] Last Admin: 03/31/21 06:40 Dose: 137 mcg Documented by: Levothyroxine Sodium (Levothyroxine Sodium 125 Mcg Tablet) 125 mcg PO SuTuWeThSa@0630 [facility] Last Admin: 04/02/21 06:47 Dose: 125 mcg Documented by: Loperamide HCl (Loperamide Hcl 2 Mg Capsule) 4 mg PO Q6H PRN PRN Reason: Diarrhea Loratadine (Loratadine 10 Mg Tablet) 10 mg PO BEDTIME [facility] Last Admin: 04/01/21 21:41 Dose: 10 mg Documented by: Magnesium Hydroxide (Milk Of Magnesia 30 Ml Oral.Susp) 30 ml PO DAILY PRN PRN Reason: Constipation Ondansetron HCl (Ondansetron Odt 4 Mg Tab.Rapdis) 4 mg TRANSLINGU Q4H PRN PRN Reason: Nausea Last Admin: 04/01/21 08:44 Dose: 4 mg Documented by: Prochlorperazine Maleate (Prochlorperazine Maleate 5 Mg Tablet) 10 mg PO BID PRN PRN Reason: Nausea Propranolol HCl (Propranolol Hcl 20 Mg Tablet) 20 mg PO BID [facility]; Protocol Last Admin: 04/01/21 21:40 Dose: 20 mg Documented by: Quetiapine Fumarate (Quetiapine Fumarate 50 Mg Tablet) 50 mg PO BEDTIME [facility] Last Admin: 04/01/21 21:41 Dose: 50 mg Documented by: Quetiapine Fumarate (Quetiapine Fumarate 50 Mg Tablet) 50 mg PO TID PRN PRN Reason: Anxiety Last Admin: 04/02/21 07:01 Dose: 50 mg Documented by: Tramadol HCl (Tramadol Hcl 50 Mg Tablet) 50 mg PO BID@0600,2100 [facility] Last Admin: 04/02/21 06:48 Dose: 50 mg Documented by: Trazodone HCl (Trazodone Hcl 100 Mg Tablet) 100 mg PO BEDTIME [facility] Last Admin: 04/01/21 21:40 Dose: 100 mg Documented by: Vitamin D (Cholecalciferol (Vitamin D3) 25 Mcg Tablet) 50 mcg PO DAILY [facility] Last Admin: 04/01/21 08:45 Dose: 50 mcg Documented by: Allergies Allergies Allergy/AdvReac Type Severity Reaction Status Date / Time metformin [METFORMIN] Allergy Intermediate VOMITING Unverified 12/24/19 19:14 aspirin [ASA] AdvReac Intermediate VOMITING Unverified 12/24/19 19:14 loratadine [From CLARITIN] AdvReac Intermediate NAUSEA & Unverified 12/24/19 19:14 VOMITING meloxicam [MELOXICAM] AdvReac Intermediate VOMITING Unverified 12/24/19 19:14 NSAIDS (Non-Steroidal AdvReac Intermediate VOMITING Unverified 12/24/19 19:14 Anti-Inflamma [NSAIDS (NON-STEROIDAL ANTI-INFLAMMA] Assessment & Plan Assessment & Plan (1) MDD (major depressive disorder), recurrent severe, without psychosis: Status: Acute Code(s): F33.2 - Major depressive disorder, recurrent severe without psychotic features Assessment and Plan: Sonam is a 45 y.o. female who carries a dx of Severe MDD, recurrent. She was in the [employer], has VA services. Pt presented to the [facility] ED 03/20/21 via EMS from her SNF (lives at [facility] due to chronic mental health issues) due to SI with a plan to starve herself. Has not been attending to ADLs and reports at baseline she has seasonal affective sx but recently depression and SI are worse, feels more isolated. Pt has co-morbid medical diagnosis of insulin dependent diabetes, hypothyroidism (on levothyroxine). Pt has long hx of IPLOC for depression, SI. Hx of SA by OD on tylenol in 2018 leading to IPLOC at [facility] in [place]. Plan: Pt says she feels her current med regimen has been helpful, likes her psychiatrist. Reports recent med change of an increase in lamictal to 200 mg QHS in 01/26 has been helpful. Takes Propranolol is for tremors, which she attributes to wellbutrin dosage. She is currently on two different dosages of levothyroxine. pt agrees to increase wellbutrin to 450 mg daily as of 03/22. seroquel PRN dosing also increased from 25 mg per dose to 50 mg per dose. hold through return of her case sealer janee from vacation and after passing of xmas. DC tentatively scheduled for 04/04. 03/31: Continue current regimen and plans with early discharge next week in place 04/01: Continue current regimen with the increase of Inderal to 20 mg b.i.d. 04/02: Continue current regimen with no changes made today I spent minutes with the patient and/or on the patient floor today, greater than?50% of which was spent counseling/coordinating care. Reason for contiued inpatient stay Substantial Risk for: other
[2021-04-02 09:51] VITALS: BP 115/73; PULSE 98; RESP 16; TEMP 36.6; O2SAT 98
[2021-04-02] MEDS: Fluticasone Propionate Nasal 16 GM SPRAY 1 SPRAY NOSTRIL-B ×2 (09:53→21:56)
[2021-04-02] MEDS: Fluticasone Propionate 100 MCG BLST.W.DEV 1 PUFF INHALE ×2 (09:53→21:57)
[2021-04-02] MEDS: Famotidine 20 MG TABLET PO ×2 (09:54→21:52)
[2021-04-02] MEDS: Escitalopram Oxalate 10 MG TABLET 30 MG PO (09:54)
[2021-04-02] MEDS: Cholecalciferol (Vitamin D3) 25 MCG TABLET 50 MCG PO (09:54)
[2021-04-02] MEDS: Acetaminophen 325 MG TABLET 975 MG PO ×3 (09:54→17:20)
[2021-04-02 09:55] VITALS: BP 115/73; PULSE 98
[2021-04-02] MEDS: buPROPion HCl XL 150 MG TAB.ER.24H 450 MG PO (09:55)
[2021-04-02] MEDS: Propranolol HCL 20 MG TABLET PO ×2 (09:55→21:53)
[2021-04-02 13:08] LABS: Glucose, Whole Blood 290 mg/dL (60-115)
[2021-04-02] MEDS: Insulin Lispro 100 UNIT/ML 3 ML VIAL 6 UNIT SUBCUT ×2 (13:09→18:00)
[2021-04-02 17:32] LABS: Glucose, Whole Blood 242 mg/dL (60-115)
[2021-04-02 18:00] VITALS: BP 105/62; PULSE 110; RESP 17; TEMP 36.7; O2SAT 97
[2021-04-02 21:00] LABS: Glucose, Whole Blood 269 mg/dL (60-115)
[2021-04-02] MEDS: Loratadine 10 MG TABLET PO (21:52)
[2021-04-02] MEDS: traZODone HCL 100 MG TABLET PO (21:52)
[2021-04-02] MEDS: Folic Acid 1 MG TABLET PO (21:52)
[2021-04-02] MEDS: Atorvastatin Calcium 40 MG TABLET PO (21:52)
[2021-04-02] MEDS: lamoTRIgine 100 MG TABLET 200 MG PO (21:53)
[2021-04-02] MEDS: Insulin Glargine,Hum.rec.anlog 100 UNIT/ML 10 ML VIAL 30 UNIT SUBCUT (21:56)
[2021-04-03] MEDS: Levothyroxine Sodium 112 MCG, Levothyroxine Sodium 25 MCG 137 MCG PO (06:34)
[2021-04-03] MEDS: traMADoL HCL 50 MG TABLET PO (06:34)
[2021-04-03 08:50] VITALS: BP 118/74; PULSE 100; RESP 18; TEMP 36.7; O2SAT 97
[2021-04-03 08:52] LABS: Glucose, Whole Blood 258 mg/dL (60-115)
[2021-04-03] MEDS: Insulin Lispro 100 UNIT/ML 3 ML VIAL 6 UNIT SUBCUT ×3 (08:52→18:03)
[2021-04-03] MEDS: Famotidine 20 MG TABLET PO ×2 (08:55→20:54)
[2021-04-03] MEDS: buPROPion HCl XL 150 MG TAB.ER.24H 450 MG PO (08:55)
[2021-04-03] MEDS: Acetaminophen 325 MG TABLET 975 MG PO ×3 (08:55→18:03)
[2021-04-03 08:56] VITALS: BP 118/74; PULSE 100
[2021-04-03] MEDS: Escitalopram Oxalate 10 MG TABLET 30 MG PO (08:56)
[2021-04-03] MEDS: Propranolol HCL 20 MG TABLET PO ×2 (08:56→20:52)
[2021-04-03] MEDS: Cholecalciferol (Vitamin D3) 25 MCG TABLET 50 MCG PO (08:56)
[2021-04-03] MEDS: QUEtiapine Fumarate 50 MG TABLET PO ×4 (09:17→20:54)
--- NOTE | 2021-04-03 11:48 | P.PNPSI_ITS ---
Subjective Subjective Date of Service: 04/03/21 Reason For Visit: SI Interim History: per staff, planning to DC tomorrow. some anxiety, denying SI/HI. napped yesterday. got PRN seroquel. doing art, pleasant with others, visible in the milieu, social. POC 148, 290, 260. Mental Status Exam Mental Status Exam Narrative: A&O. in street clothes, adequate grooming. Good eye contact, atte ntive. No Tics or Tremors. No abnormal involuntary movements. Calm, cooperative, engaged. Non-pressured speech, spontaneous with regular rate and rhythm, nml volume and prosody. No prolonged speech latency or dysarthria. Mood is anxious, affect is generally congruent but more flexible - overall pt is calm, forthcoming, help seeking. Thoughts are coherent, organized. no SI/HI/AVH. No known cognitive or memory impairment. Insight/ Judgment limited but adequate. Diagnostics Vital Signs (24Hr): Vital Signs - 24 hr 04/02/21 18:00 04/03/21 08:50 04/03/21 08:56 Temperature 98.0 F 98.0 F Pulse Rate 110 H 100 100 Respiratory Rate 17 18 Blood Pressure 105/62 118/74 118/74 Pulse Oximetry 97 97 BMI result Conveyor System Dispatcher New 4Bd Body Mass Index Conveyor System Dispatcher New 4d 32.6 Conveyor System Dispatcher 4d Conveyor System Dispatcher New 4d Labs Results: 03/20/21 22:55 03/20/21 22:55 Labs: Laboratory Results - last 48 hr 04/01/21 04/02/21 04/02/21 21:31 09:31 13:04 POC Glucose 218 H 148 H 290 H 04/02/21 04/02/21 04/03/21 17:27 20:54 08:48 POC Glucose 242 H 269 H 258 H Medications Medications Current Medications Acetaminophen (Acetaminophen 325 Mg Tablet) 975 mg PO TID@0800,1200,1700 [place] Last Admin: 04/03/21 08:55 Dose: 975 mg Documented by: Al Hydroxide/Mg Hydroxide (Magnesium Hydrox/Alum Hydrox 30 Ml Oral.Susp) 30 ml PO Q4H PRN PRN Reason: Dyspepsia Albuterol Sulfate (Albuterol Sulfate 90 Mcg 8 Gm Inhaler) 2 puff INHALE Q4H PRN PRN Reason: Shortness Of Breath Atorvastatin Calcium (Atorvastatin Calcium 40 Mg Tablet) 40 mg PO BEDTIME PENDING SALE TO [facility] Last Admin: 04/02/21 21:52 Dose: 40 mg Documented by: Bupropion HCl (Bupropion Hcl Xl 150 Mg Tab.Er.24h) 450 mg PO DAILY PENDING SALE TO [facility] Last Admin: 04/03/21 08:55 Dose: 450 mg Documented by: Escitalopram Oxalate (Escitalopram Oxalate 10 Mg Tablet) 30 mg PO DAILY PENDING SALE TO [facility] Last Admin: 04/03/21 08:56 Dose: 30 mg Documented by: Famotidine (Famotidine 20 Mg Tablet) 20 mg PO BID PENDING SALE TO [facility] Last Admin: 04/03/21 08:55 Dose: 20 mg Documented by: Fluticasone Propionate (Fluticasone Propionate Nasal 16 Gm [place]) 1 spray NOSTRIL-B BID PENDING SALE TO [facility] Last Admin: 04/03/21 10:29 Dose: Not Given Documented by: Fluticasone Propionate (Fluticasone Propionate 100 Mcg Blst.W.Dev) 1 puff INHALE RBID PENDING SALE TO [facility] Last Admin: 04/03/21 09:52 Dose: Not Given Documented by: Folic Acid (Folic Acid 1 Mg Tablet) 1 mg PO BEDTIME PENDING SALE TO [facility] Last Admin: 04/02/21 21:52 Dose: 1 mg Documented by: Guaifenesin/Dextromethorphan (Guaifenesin Dm 200/20/10 Ml 10 Ml Syrup) 10 ml PO Q4H PRN PRN Reason: Cough Hydroxyzine HCl (Hydroxyzine Hcl 25 Mg Tablet) 25 mg PO Q6H PRN PRN Reason: Anxiety Insulin Glargine (Insulin Glargine,Hum.Rec.Anlog 100 Unit/Ml 10 Ml Vial) 30 unit SUBCUT BEDTIME PENDING SALE TO [facility] Last Admin: 04/02/21 21:56 Dose: 30 unit Documented by: Insulin Human Lispro (Insulin Lispro 100 Unit/Ml 3 Ml Vial) 6 unit SUBCUT TIDAC PENDING SALE TO [facility] Last Admin: 04/03/21 08:52 Dose: 6 unit Documented by: Lamotrigine (Lamotrigine 100 Mg Tablet) 200 mg PO BEDTIME PENDING SALE TO [facility] Last Admin: 04/02/21 21:53 Dose: 200 mg Documented by: Levothyroxine Sodium 112 mcg/ (Levothyroxine Sodium 25 mcg) 137 mcg PO MoFr@0600 PENDING SALE TO [facility] Last Admin: 04/03/21 06:34 Dose: 137 mcg Documented by: Levothyroxine Sodium (Levothyroxine Sodium 125 Mcg Tablet) 125 mcg PO [facility]@0630 PENDING SALE TO [facility] Last Admin: 04/02/21 06:47 Dose: 125 mcg Documented by: Loperamide HCl (Loperamide Hcl 2 Mg Capsule) 4 mg PO Q6H PRN PRN Reason: Diarrhea Loratadine (Loratadine 10 Mg Tablet) 10 mg PO BEDTIME PENDING SALE TO [facility] Last Admin: 04/02/21 21:52 Dose: 10 mg Documented by: Magnesium Hydroxide (Milk Of Magnesia 30 Ml Oral.Susp) 30 ml PO DAILY PRN PRN Reason: Constipation Ondansetron HCl (Ondansetron Odt 4 Mg Tab.Rapdis) 4 mg TRANSLINGU Q4H PRN PRN Reason: Nausea Last Admin: 04/01/21 08:44 Dose: 4 mg Documented by: Prochlorperazine Maleate (Prochlorperazine Maleate 5 Mg Tablet) 10 mg PO BID PRN PRN Reason: Nausea Propranolol HCl (Propranolol Hcl 20 Mg Tablet) 20 mg PO BID PENDING SALE TO [facility]; Protocol Last Admin: 04/03/21 08:56 Dose: 20 mg Documented by: Quetiapine Fumarate (Quetiapine Fumarate 50 Mg Tablet) 50 mg PO BEDTIME PENDING SALE TO [facility] Last Admin: 04/02/21 21:52 Dose: 50 mg Documented by: Quetiapine Fumarate (Quetiapine Fumarate 50 Mg Tablet) 50 mg PO TID PRN PRN Reason: Anxiety Last Admin: 04/03/21 09:17 Dose: 50 mg Documented by: Trazodone HCl (Trazodone Hcl 100 Mg Tablet) 100 mg PO BEDTIME PENDING SALE TO [facility] Last Admin: 04/02/21 21:52 Dose: 100 mg Documented by: Vitamin D (Cholecalciferol (Vitamin D3) 25 Mcg Tablet) 50 mcg PO DAILY PENDING SALE TO [facility] Last Admin: 04/03/21 08:56 Dose: 50 mcg Documented by: Allergies Allergies Allergy/AdvReac Type Severity Reaction Status Date / Time metformin Allergy Intermediate VOMITING Unverified 12/24/19 19:14 [METFORMIN] aspirin [ASA] AdvReac Intermediate VOMITING Unverified 12/24/19 19:14 loratadine [From AdvReac Intermediate NAUSEA & Unverified 12/24/19 19:14 CLARITIN] VOMITING meloxicam AdvReac Intermediate VOMITING Unverified 12/24/19 19:14 [MELOXICAM] NSAIDS AdvReac Intermediate VOMITING Unverified 12/24/19 19:14 (Non-Steroidal Anti-Inflamma [NSAIDS (NON-STEROIDAL ANTI-INFLAMMA] Assessment & Plan Assessment & Plan (1) MDD (major depressive disorder), recurrent severe, without psychosis: Status: Acute Code(s): F33.2 - Major depressive disorder, recurrent severe without psychotic features Assessment and Plan: Sonam is a 45 y.o. female who carries a dx of Severe MDD, recurrent. She was in the [employer], has [facility] services. Pt presented to the [facility] 03/20/21 via EMS from her SNF (lives at [facility] due to chronic mental health issues) due to SI with a plan to starve herself. Has not been attending to ADLs and reports at baseline she has seasonal affective sx but recently depression and SI are worse, feels more isolated. Pt has co-morbid medical diagnosis of insulin dependent diabetes, hypothyroidism (on levothyroxine). Pt has long hx of IPLOC for depression, SI. Hx of SA by OD on tylenol in 2018 leading to IPLOC at [facility] in [place]. Plan: Pt says she feels her current med regimen has been helpful, likes her psyc hiatrist. Reports recent med change of an increase in lamictal to 200 mg QHS in 01/26 has been helpful. Takes Propranolol is for tremors, which she attributes to wellbutrin dosage. She is currently on two different dosages of levothyroxine. pt agrees to increase wellbutrin to 450 mg daily as of 03/22. seroquel PRN dosing also increased from 25 mg per dose to 50 mg per dose. inderal increased to 20 BID as of 04/01. hold through return of her manager of case management janee from vacation and after passing of x mas. DC scheduled for 04/04. I spent minutes with the patient and/or on the patient floor today, greater than?50% of which was spent counseling/coordinating care. Reason for contiued inpatient stay Substantial Risk for: harm to self, inability to function and rapid decompensation
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
[2021-04-03 13:02] LABS: Glucose, Whole Blood 203 mg/dL (60-115)
[2021-04-03 18:39] LABS: Glucose, Whole Blood 213 mg/dL (60-115)
[2021-04-03 20:47] VITALS: BP 129/76; PULSE 114; RESP 18; TEMP 36.6; O2SAT 99
[2021-04-03 20:50] LABS: Glucose, Whole Blood 302 mg/dL (60-115)
[2021-04-03 20:52] VITALS: BP 129/76; PULSE 114
[2021-04-03] MEDS: lamoTRIgine 100 MG TABLET 200 MG PO (20:53)
[2021-04-03] MEDS: Loratadine 10 MG TABLET PO (20:53)
[2021-04-03] MEDS: Folic Acid 1 MG TABLET PO (20:53)
[2021-04-03] MEDS: traZODone HCL 100 MG TABLET PO (20:53)
[2021-04-03] MEDS: Atorvastatin Calcium 40 MG TABLET PO (20:54)
[2021-04-03] MEDS: Insulin Glargine,Hum.rec.anlog 100 UNIT/ML 10 ML VIAL 30 UNIT SUBCUT (20:55)
[2021-04-03] MEDS: Fluticasone Propionate Nasal 16 GM SPRAY 1 SPRAY NOSTRIL-B (20:55)
[2021-04-03] MEDS: Fluticasone Propionate 100 MCG BLST.W.DEV 1 PUFF INHALE (20:55)
[2021-04-04] MEDS: Levothyroxine Sodium 125 MCG TABLET PO (06:42)
[2021-04-04] MEDS: Escitalopram Oxalate 10 MG TABLET 30 MG PO (08:58)
[2021-04-04] MEDS: Cholecalciferol (Vitamin D3) 25 MCG TABLET 50 MCG PO (08:58)
[2021-04-04] MEDS: traMADoL HCL 50 MG TABLET PO (08:58)
[2021-04-04] MEDS: buPROPion HCl XL 150 MG TAB.ER.24H 450 MG PO (08:59)
[2021-04-04] MEDS: Famotidine 20 MG TABLET PO (08:59)
[2021-04-04] MEDS: Fluticasone Propionate 100 MCG BLST.W.DEV 1 PUFF INHALE (08:59)
[2021-04-04] MEDS: Acetaminophen 325 MG TABLET 975 MG PO (08:59)
[2021-04-04] MEDS: Fluticasone Propionate Nasal 16 GM SPRAY 1 SPRAY NOSTRIL-B (08:59)
[2021-04-04 09:17] VITALS: BP 125/72; PULSE 106; RESP 17; TEMP 36.6; O2SAT 96
[2021-04-04 09:19] VITALS: BP 125/75; PULSE 106
[2021-04-04] MEDS: Propranolol HCL 20 MG TABLET PO (09:19)
[2021-04-04] MEDS: Insulin Lispro 100 UNIT/ML 3 ML VIAL 6 UNIT SUBCUT (09:23)
[2021-04-04 09:24] LABS: Glucose, Whole Blood 230 mg/dL (60-115)
[2021-04-04] MEDS: QUEtiapine Fumarate 50 MG TABLET PO (10:12)
== END 2021-04-04 11:21 | disposition home or self-care (01) | DRG 885 ==
LOC: HO.ED 03-21 14:09 → HO.PADLT16 03-21 14:40
PROVIDERS: Registered Nurse; Admitting Provider Psychiatry & Neurology Psychiatry; Emergency Provider Emergency Medicine Emergency Medical Services; Visit Provider Psychiatry & Neurology Psychiatry
DX: F33.2 Major depressive disorder, recurrent severe without psychotic features (principal); R45.851 Suicidal ideations; Z20.822 Contact with and (suspected) exposure to COVID-19; E11.9 Type 2 diabetes mellitus without complications; Z23 Encounter for immunization; Z88.6 Allergy status to analgesic agent; Z79.4 Long term (current) use of insulin; Z79.51 Long term (current) use of inhaled steroids; Z79.899 Other long term (current) drug therapy
CPT/HCPCS: 36415; 80048; 80061; 80143; 80179; 80307; 81025; 82077; 82607; 82746; 82947; 83036; 83735; 84439; 84443; 85025; 87635; 90686; 93005; 99285

== ENCOUNTER 2022-09-24 08:04 | Outpatient (REF) | payer OTHER, MEDICARE, SELFPAY ==
--- NOTE | ~2022-09-24 | MM_ITS ---
EXAMINATION: MM SCREENING DIGITAL BREAST TOMOSYNTHESIS, BILATERAL CLINICAL INFORMATION: Screening. Asymptomatic. Age 47. No prior breast imaging. The lifetime risk of breast cancer based on the Tyrer-Cuzick Model is 10%. COMPARISON: None (current study represents initial baseline exam). TECHNIQUE: Digital breast tomosynthesis is performed in both the craniocaudal and mediolateral oblique views along with computer-aided detection (CAD). Synthesized 2D images are generated from the tomosynthesis. FINDINGS: The breasts are heterogeneously dense, which may obscure small masses (ACR BI-RADS breast composition Category c). There is no significant mass or architectural abnormality. The axilla and skin contours are unremarkable. Left breast has a few isolated punctate benign calcifications. Right breast has grouped possibly coarse calcifications mid central breast. There are other punctate fine calcifications suggested central outer right breast on CC view. There may be two layering calcifications on right MLO view. Patient will be recalled for additional imaging with right magnification views to fully characterize. MM/MM tomosynthesis screening BI IMPRESSION: Right: -Calcifications mid central and central outer right breast. Left: -No mammographic evidence of malignancy. ASSESSMENT: BI-RADS 0: Incomplete - Need Additional Imaging Evaluation RECOMMENDATION: 1. Additional views right breast (magnification CC, magnification ML). 2. Radiology department staff will contact the patient for additional imaging. This patient's information was entered into a reminder system with a target due date for their next mammogram.
== END 2022-09-24 08:05 | disposition home or self-care (01) ==
LOC: HO.MAMMO 08:04
PROVIDERS: PCP Family Medicine; Visit Provider Family Medicine
DX: Z12.31 Encounter for screening mammogram for malignant neoplasm of breast (principal)
CPT/HCPCS: 77063; 77067

== ENCOUNTER 2022-12-07 10:52 | Outpatient (REF) | payer OTHER, MEDICARE, SELFPAY ==
--- NOTE | ~2022-12-07 | MM_ITS ---
EXAMINATION: MM DIAGNOSTIC DIGITAL MAMMOGRAPHY, RIGHT CLINICAL INFORMATION: Follow-up for calcifications right breast central and lateral aspect, middle one third seen on screening exam. COMPARISON: Mammography: 04/26/2022 screening mammography, baseline. TECHNIQUE: Digital mammography is performed in the following views: Full-field 3-D digital right mediolateral view, as well as 2-D right spot magnification CC and mediolateral views. FINDINGS: The breasts are heterogeneously dense, which may obscure small masses (ACR BI-RADS breast composition Category c). Within the central right breast at the approximate 12:00 axis, there are grouped somewhat coarse appearing calcifications which have a probably benign morphology and are likely dystrophic. Immediately superior and posterolateral to this are 2 groups of loosely grouped punctate fine calcifications which are not significantly pleomorphic, and do not demonstrate linear, or branching forms or follow ductal or segmental distribution. Several do appear to layer on the 90 degree magnification view in both groups, suggesting milk of calcium. There are superimposed subtle vascular calcifications in these regions as well. Given the appearance and layering, these calcifications are probably benign. No additional suspicious findings in the right breast. Results were provided to the patient at time of visit by the technologist. MM/MM added views RT IMPRESSION: Probably benign calcifications right breast, 3 groups central and lateral, middle one third, as described, possibly some representing milk of calcium, for which six-month follow-up standard magnification views are recommended to ensure stability. ASSESSMENT: BI-RADS BI-RADS 3 - Probably benign finding(s) - 6 month follow-up suggested RECOMMENDATION: 6 Month F/U This patient's information was entered into a reminder system with a target due date for their next mammogram.
== END 2022-12-07 10:53 | disposition home or self-care (01) ==
LOC: HO.MAMMO 10:52
PROVIDERS: PCP Family Medicine; Visit Provider Family Medicine
DX: R92.1 Mammographic calcification found on diagnostic imaging of breast (principal)
CPT/HCPCS: 77065

== ENCOUNTER → 2022-12-07 11:30 | Outpatient (BNV) | payer OTHER, SELFPAY | PROVIDERS: PCP Family Medicine; Visit Provider Radiology Diagnostic Radiology | DX: N63.15 Unspecified lump in the right breast, overlapping quadrants (principal) | CPT/HCPCS: 77065 ==